=== PATIENT | male | born 1955 | race Caucasian/White ===

== ENCOUNTER 2018-12-12 09:04 | Emergency (ER) | payer OTHER ==
[~2018-12-12] VITALS: Ht 175.3 cm; Wt 90.7 kg
[~2018-12-12 09:04] MED LIST: ALBU90OI61 INH; AZIT250 PO; FAMO20 PO; METPRE4DP PO
[2018-12-12 09:28] LABS: BASOPHILS ABSOLUTE AUTO 0.08 K/mm3 (0.00-0.23); BASOPHILS PERCENT AUTO 1 % (0-2); EOSINOPHILS ABSOLUTE AUTO 0.17 K/mm3 (0.00-0.68); EOSINOPHILS PERCENT AUTO 2 % (0-6); Hematocrit 48.3 % (37.0-53.0); Hemoglobin 16.4 g/dL (13.5-17.5); IMMATURE GRAN ABSOLUTE AUTO 0.06 K/mm3 (0.00-0.10); IMMATURE GRAN PERCENT AUTO 1 % (0-1); LYMPHOCYTES ABSOLUTE AUTO 2.72 K/mm3 (0.84-5.20); LYMPHOCYTES PERCENT AUTO 37 % (21-46); MONOCYTES ABSOLUTE AUTO 0.94 K/mm3 (0.16-1.47); MONOCYTES PERCENT AUTO 13 % (4-13); Mean Corpuscular HGB 34.8 pg (26.0-34.0); Mean Corpuscular Volume 103 fL (80-100); Mean Platelet Volume 9.1 fL (9.1-12.4); NEUTROPHILS ABSOLUTE AUTO 3.31 K/mm3 (1.96-9.15); NEUTROPHILS PERCENT AUTO 46 % (41-73); Platelet Count 205 K/mm3 (150-400); RDW Coefficient Variation 12.4 % (11.7-14.2); RDW Standard Deviation 47.3 fL (35.1-46.3); Red Blood Cell Count 4.71 M/mm3 (4.30-5.90); White Blood Cell Count 7.28 K/mm3 (4.00-11.30)
[2018-12-12 09:52] LABS: Alanine Aminotransfer (ALT/SGP 164 U/L (12-78); Albumin, Blood 3.8 g/dL (3.4-5.0); Alk Phos 132 U/L (50-136); Anion Gap 18 mmol/L (6-16); Aspartate Aminotrans (AST/SGOT 298 U/L (12-37); Bilirubin, Total 0.7 mg/dL (0.1-1.0); Blood Urea Nitrogen 15 mg/dL (8-24); Bun/Creatinine Ratio 15.4 (12.0-20.0); CO2, Blood 23 mmol/L (21-32); Calcium, Blood 9.5 mg/dL (8.5-10.1); Chloride, Blood 100 mmol/L (98-108); Creatinine, Blood 0.98 mg/dL (0.60-1.20); Globulin, Blood 3.9 g/dL (2.2-4.0); Glomerular Filtration Rate >60 (60-); Glucose, Blood 173 mg/dL (70-99); Potassium, Blood 3.3 mmol/L (3.5-5.5); Sodium, Blood 141 mmol/L (136-145); Total Protein, Blood 7.7 g/dL (6.4-8.2)
== END 2018-12-12 11:27 | disposition home or self-care (01) ==
LOC: ER 09:04
PROVIDERS: Emergency Medicine
DX: F10.20 Alcohol dependence, uncomplicated (principal); E87.6 Hypokalemia; F17.210 Nicotine dependence, cigarettes, uncomplicated; Z79.899 Other long term (current) drug therapy
CPT/HCPCS: 36415; 80053; 82947; 83735; 85025; 93005; 93010; 96365; 96366; 96375; 96376; 99285-25; J2060; J3411; J3475; J7042

== ENCOUNTER 2018-12-22 13:22 | Inpatient (IN) | payer OTHER ==
[~2018-12-22] VITALS: Ht 188 cm; Wt 82.5 kg
[2018-12-22 13:47] LABS: Source, Urine Catheter
[2018-12-22 13:52] LABS: BASOPHILS ABSOLUTE AUTO 0.13 K/mm3 (0.00-0.23); BASOPHILS PERCENT AUTO 1 % (0-2); EOSINOPHILS ABSOLUTE AUTO 0.27 K/mm3 (0.00-0.68); EOSINOPHILS PERCENT AUTO 2 % (0-6); Hematocrit 47.4 % (37.0-53.0); Hemoglobin 16.1 g/dL (13.5-17.5); IMMATURE GRAN ABSOLUTE AUTO 0.06 K/mm3 (0.00-0.10); IMMATURE GRAN PERCENT AUTO 0 % (0-1); LYMPHOCYTES ABSOLUTE AUTO 2.67 K/mm3 (0.84-5.20); LYMPHOCYTES PERCENT AUTO 20 % (21-46); MONOCYTES ABSOLUTE AUTO 1.15 K/mm3 (0.16-1.47); MONOCYTES PERCENT AUTO 9 % (4-13); Mean Corpuscular HGB 35.3 pg (26.0-34.0); Mean Corpuscular Volume 104 fL (80-100); Mean Platelet Volume 9.3 fL (9.1-12.4); NEUTROPHILS PERCENT AUTO 68 % (41-73); Platelet Count 339 K/mm3 (150-400); RDW Coefficient Variation 12.8 % (11.7-14.2); RDW Standard Deviation 48.8 fL (35.1-46.3); Red Blood Cell Count 4.56 M/mm3 (4.30-5.90); White Blood Cell Count 13.38 K/mm3 (4.00-11.30)
[2018-12-22 13:55] LABS: Appearance, Urine Clear (Clear); Bilirubin, Urine Neg (Neg); Blood, Urine Neg (Neg); Color, Urine Yellow (P-Yellow); Glucose Qualitative, Urine Neg (Neg); Ketones, Urine 2+ (Neg); Leukocyte Esterase, Urine Neg (Neg); Nitrite, Urine Neg (Neg); Protein, Urine Neg (Neg); Specific Gravity, Urine 1.015 (1.003-1.022); Urobilinogen, Urine NORM (Normal)
[2018-12-22 14:13] LABS: Alanine Aminotransfer (ALT/SGP 95 U/L (12-78); Albumin, Blood 3.9 g/dL (3.4-5.0); Albumin/Globulin Ratio 1.1 (0.8-1.8); Alk Phos 135 U/L (50-136); Anion Gap 14 mmol/L (6-16); Aspartate Aminotrans (AST/SGOT 122 U/L (12-37); Bilirubin, Total 1.2 mg/dL (0.1-1.0); Blood Urea Nitrogen 19 mg/dL (8-24); Bun/Creatinine Ratio 16.4 (12.0-20.0); CO2, Blood 25 mmol/L (21-32); Calcium, Blood 9.5 mg/dL (8.5-10.1); Chloride, Blood 105 mmol/L (98-108); Creatinine, Blood 1.16 mg/dL (0.60-1.20); Ethanol (Alcohol), Blood, Med <3 mg/dL; Globulin, Blood 3.6 g/dL (2.2-4.0); Glomerular Filtration Rate >60 (60-); Glucose, Blood 167 mg/dL (70-99); Magnesium, Blood 1.9 mg/dL (1.6-2.4); Potassium, Blood 3.1 mmol/L (3.5-5.5); Sodium, Blood 144 mmol/L (136-145); Total Protein, Blood 7.5 g/dL (6.4-8.2)
[2018-12-22 14:15] LABS: U Amphetamine Screen DETECTED
[2018-12-22 14:16] LABS: U Barbituate Screen Not Detected; U Benzodiazapine Screen Not Detected; U Buprenorphine Screen Not Detected; U Cannabinoids Screen Not Detected; U Cocaine Screen Not Detected; U Methadone Screen Not Detected; U Methamphetamine Screen DETECTED; U Opiates Screen DETECTED; U Oxycodone Screen Not Detected; U Phencyclidine Screen Not Detected; U Propoxyphene Screen Not Detected
[2018-12-22 14:18] LABS: Prothrombin Time Results 10.6 Sec (9.7-11.5)
[2018-12-22 14:36] LABS: CPK Creatine Kinase 210 U/L (39-308)
[2018-12-23 07:37] LABS: BASOPHILS ABSOLUTE AUTO 0.07 K/mm3 (0.00-0.23); BASOPHILS PERCENT AUTO 1 % (0-2); EOSINOPHILS PERCENT AUTO 1 % (0-6); Hematocrit 41.2 % (37.0-53.0); Hemoglobin 13.9 g/dL (13.5-17.5); IMMATURE GRAN ABSOLUTE AUTO 0.05 K/mm3 (0.00-0.10); IMMATURE GRAN PERCENT AUTO 1 % (0-1); LYMPHOCYTES ABSOLUTE AUTO 0.69 K/mm3 (0.84-5.20); LYMPHOCYTES PERCENT AUTO 7 % (21-46); MONOCYTES ABSOLUTE AUTO 0.66 K/mm3 (0.16-1.47); MONOCYTES PERCENT AUTO 7 % (4-13); Mean Corpuscular HGB 34.8 pg (26.0-34.0); Mean Corpuscular HGB Conc 33.7 g/dL (31.5-36.5); Mean Corpuscular Volume 103 fL (80-100); Mean Platelet Volume 9.5 fL (9.1-12.4); NEUTROPHILS ABSOLUTE AUTO 8.65 K/mm3 (1.96-9.15); NEUTROPHILS PERCENT AUTO 85 % (41-73); Platelet Count 228 K/mm3 (150-400); RDW Coefficient Variation 12.9 % (11.7-14.2); RDW Standard Deviation 48.9 fL (35.1-46.3); Red Blood Cell Count 3.99 M/mm3 (4.30-5.90); White Blood Cell Count 10.22 K/mm3 (4.00-11.30)
[2018-12-23 08:18] LABS: Alanine Aminotransfer (ALT/SGP 72 U/L (12-78); Albumin, Blood 2.9 g/dL (3.4-5.0); Albumin/Globulin Ratio 0.8 (0.8-1.8); Alk Phos 112 U/L (50-136); Anion Gap 12 mmol/L (6-16); Aspartate Aminotrans (AST/SGOT 73 U/L (12-37); Bilirubin, Total 0.5 mg/dL (0.1-1.0); Blood Urea Nitrogen 21 mg/dL (8-24); Bun/Creatinine Ratio 25.2 (12.0-20.0); CO2, Blood 22 mmol/L (21-32); Calcium, Blood 8.6 mg/dL (8.5-10.1); Chloride, Blood 115 mmol/L (98-108); Creatinine, Blood 0.83 mg/dL (0.60-1.20); Globulin, Blood 3.5 g/dL (2.2-4.0); Glomerular Filtration Rate >60 (60-); Glucose, Blood 125 mg/dL (70-99); Sodium, Blood 149 mmol/L (136-145); Total Protein, Blood 6.4 g/dL (6.4-8.2)
--- NOTE | 2018-12-23 15:25 | NUR ---
PT ARRIVED TO PCU 8 VIA GURNEY. FULL STAFF TRANSFER INTO BED. PT GRUNTS WITH TURNING, DOES NOT OPEN EYES. SLIGHT TREMOR NOTED IN ARMS, DOES ATTEMPT TO PULL AT NEVILLE.PT VERY ODOROUS, BATH GIVEN. SKIN INTACT. VSS ALTHOUGH SOMEWHAT HYPERTENSIVE. TRACE EDEMA NOTED. CONT TO MONITOR AND ASSESS CIWA NEEDED
--- NOTE | 2018-12-23 18:15 | NUR ---
PT RESTING IN BED. IVF INFUSING. DAUGHTER THOMPSON IN TO CHECK PT STATUS. ONLY FEW TWITCHES, SMALL MOVEMENTS NOTED. PT STILL ONLY OPENING EYES FOR BRIEF MOMENT WITH VERBAL AND TOUCH STIMULI, DOES NOT RESPOND OTHERWISE. CIWA RESPONDING WELL WITH 2MG ATIVAN. CONT TO MONITOR AND REPORT OFF TO PM RN
[2018-12-24 04:21] LABS: Anion Gap 10 mmol/L (6-16); Blood Urea Nitrogen 15 mg/dL (8-24); Bun/Creatinine Ratio 21.2 (12.0-20.0); CO2, Blood 26 mmol/L (21-32); Calcium, Blood 8.9 mg/dL (8.5-10.1); Chloride, Blood 110 mmol/L (98-108); Creatinine, Blood 0.71 mg/dL (0.60-1.20); Glomerular Filtration Rate >60 (60-); Glucose, Blood 111 mg/dL (70-99); Potassium, Blood 3.3 mmol/L (3.5-5.5); Sodium, Blood 146 mmol/L (136-145)
--- NOTE | 2018-12-24 06:00 | NUR ---
SHIFT SUMMARY . RECEIVED PT AT 1900/ OBTUNDED AND NON VERBAL AND ONLY RESPONDS W/ MOAN TO IRRITABLE STINULI. ATIVAN USED NEEDED THRU NOC. CIWA 9-11 ALL NOC. RESTLESS AND TIGHTENS ARMS AND SOME TREMORS COME AND GO AND WORSE WHEN TAKING BP IT SEEMS AN IRRATABLE STIMULUS. NO RESTRAINTS NEEDED TONIGHT. ATIVAN VERY EFFECTIVE AND MINIMAL DOSING. OPENS EYE EARLIER THIS AM AND MUMBLE NAME AND ACCURATE DATE. TREMORS ARE VERY MILD. OCC MOIST COUGH NOT IMPAIRING RESP EFFORT. LEFT O2 ON ALL NOC AT 2-3L . NOTED A SLIGHT SLEEP APNEA WITH SOME RHYTHMIC BREATHING. DOES NOT APPEAR IN ANY PAIN. IVF AT 200 HR THRU ENTIRE NOC. BP UP AND STIFFENS ARM. WITH SOME MOVEMENT FOR BP CHECK. TEMP 100 AND REMOVED EXTRA COVERS. IMPROVING FOR COOL DOWN.S/ ST 104 HIGHEST HR. NO SKIN ISSUES . TEA COLORED URINE VIA NEVILLE. DID NOT PULL ON NEVILLE ALL NOC
--- NOTE | 2018-12-24 10:59 | NUR ---
PCU DAYSHIFT ASSUMED CARE OF PT APPROX. 0700. PT RESTING AT THIS TIME. NO S/SX OF AGGITATION OR DISCOMFORT. CIWA SCORE COMPLETED. BLOOD PRESSURE ELEVATED, PRN MEDICATION FOR HYPERTENSION GIVEN PER EMAR FOR THIS. HEART RHYTHM SINUS TACHYCARDIA. ALL OTHER VITAL SIGNS STABLE. PT OPENED EYES TO VERBAL STIMULI BUT UNABLE TO GIVE VERBAL FEEDBACK. MORNING PROGRESSED PT ABLE TO MUMBLE SOME WORDS WHEN ASKED QUESTIONS AND ABLE TO OPEN EYES. BUT REMAINS SLEEPY AND LETHARGIC. BED IN LOW POSTION, BED ALARM ON, CALL LIGHT IN REACH AND PT DENIES ANY NEEDS AT THIS TIME. WILL CONTINUE TO MONITOR.
--- NOTE | 2018-12-24 16:04 | NUR ---
I was present with this family when Mrs. Honeycutt last week. It does hot surprise me that Jacob ended up hospitalized. I met with his dtr at bedside. She is very concerned about his drinking and tells me this has escalated since 's passing. She doubts he will ever maintain sobriety. Jacob slept restlessly throughout visit. I provided theraputic listening and prayer. Encouraged self-care. Affirmed excellent care and attention. I will remain available to this pt and family.
--- NOTE | 2018-12-24 17:42 | NUR ---
Asked to return to pts room by RN because he has awakend. His speech is garbled and he appears confused. He was trying to get up, but is far too weak to do so. Provided calm assurance of care and a presence of love. I will remain available to Sean in coming days to provide bereavement elementary school counselor and comfort.
--- NOTE | 2018-12-24 19:52 | NUR ---
SHIFT SUMMARY THROUGHOUT SHIFT PT MENTATION VARIED. AT TIMES PT WAS LETHARGIC AND DIFFICULT TO ARROUSE BUT REMAINED ARROUSABLE. OTHER TIMES PT OPEN EYES TO VERBAL STIMULI AND WAS ABLE TO TRACT THE PERSON IN ROOM. PT WAS ABLE TO ANSWER QUESTIONS AT TIMES. THIS EVENING PT WAS ABLE TO HOLD A SHORT CONVERSATION, ALTHOUGH MANY WORDS WERE MUMBLED AND DIFFICULT TO UNDERSTAND. PT HAD SOME INCREASED AGGITATION AT TIMES. ATIVAN WAS GIVEN PER EMAR THROUGHOUT SHIFT. DAUGHTER AT [facility] INTERMITENTLY TODAY. DAUGHTER REPORTS ABLE TO HAVE A SMALL CONVERSATION WITH PT THIS EVENING WELL. SHE REPORTS HE EXPRESSED BEING SAD ABOUT RECENT LOSS OF . PALLIATIVE CARE RN NOTIFIED AND IN TO SEE PT TODAY. BLOOD PRESURE ELEVATED THROUGHTOUT SHIFT PRN HYPERTENSION MEDICATION GIVEN PER EMAR FOR THIS. PMD NOTIFIED OF THIS WELL AND ORDERS TO CONTINUTE WITH PRN HYPERTENSION MEDICATION ORDERED. PMD REPORTS HE EXPECTS BLOOD PRESSURE TO BE ELEVATED WHILE DETOXING. DAUGHTER NOTIFIED STAFF THAT PT HAS PREVIOUSLY BEEN DIAGNOSISED WITH HTN WELL. NEVILLE REMAIN IN PLACE, PATENT AND DRAINING. BED IN LOW POSTION, CALL LIGHT IN REACH AND PT DENIES ANY NEEDS AT THIS TIME. WILL CONTINUE TO MONITOR UNTIL HANDOFF TO NIGHTSHIFT RN.
--- NOTE | 2018-12-24 23:11 | NUR ---
PM NOTE. ASSUMED CARE OF PT APROX 1900, PT IS ASLEEP AND WAKE SLIGHTLY TO VERBAL STIMULI AND TOUCH/SHAKING BUT GOES BACK TO SLEEP VERY QUICKLY. TELE INTACT, ST AT 118 PER ROLLER CLEANER, PT BP IS 192/119 (MEDICATED PER EMAR), TRACE EDEMA NOTED TO THE PT'S BLE. L/S CLEAR T/O AND DIM IN THE BASES, PT IS >90% ON RA, RR AT 28 ARE EVEN AN UNLABORED. BT PRESENT AND HYPERACTIVE, ABD IS SOFT AND NONTENDER TO PALP. BED ALARM ON, CALL LIGHT IN REACH, BED IS LOCKED WILL CONTINUE TO MONITOR.
--- NOTE | 2018-12-25 00:50 | NUR ---
PT UPDATE... THIS RN ENTERED PT'S ROOM AND SAW PT WAS PULLING ON NEVILLE, PT WAS VERY AGITATED, TRYING TO CLIMB OUT OF BED AND PULL EVERYTHING OFF, TELE, GOWN, AND IV WELL THE NEVILLE. PT WAS MEDICATED PER EMAR FOR A CIWA OF 20. AFTER PT WAS MEDICATED, PT WAS STILL ATTEMPTING TO PULL OUT NEVILLE AND CLIMB OUT OF BED. PT WAS MEDICATED AGAIN PER EMAR/CIWA PROTOCOL/CLINICAL JUDGMENT. WILL CLOSELY MONITOR.
--- NOTE | 2018-12-25 02:34 | NUR ---
PT UPDATE... PT IS AGITATED, ATTEMPTING TO PULL OUT HIS NEVILLE, IV AND TELE. PT IS ALSO ATTEMPTING TO CLIMB OUT OF BED, DIAPHORETIC AND HAS TREMORS, PT'S LAST CIWA WAS 20. PT HAS HAD THE MAX 24 MG OF ATIVAN PER CIWA PROTOCOL. PT HAS PULLED ON HIS NEVILLE MULTIPLE TIMES, URINE IN THE THE NEVILLE TUBE AND BAG IS [place] RED. PT'S AGITATION IS INCREASING. PROVIDER CALLED, ORDERS OBTAINED TO TRANSFER TO ICU.
--- NOTE | 2018-12-25 03:30 | NUR ---
RECEIVED REPORT. PT ARRIVAED TO ROOM AT APPROX 0325. ASSUMED CARE OF PT AT THAT TIME. WILL CONTINUE TO MONITOR
[2018-12-25 04:23] LABS: Magnesium, Blood 1.5 mg/dL (1.6-2.4)
[2018-12-25 04:24] LABS: Anion Gap 10 mmol/L (6-16); Blood Urea Nitrogen 13 mg/dL (8-24); Bun/Creatinine Ratio 17.4 (12.0-20.0); CO2, Blood 26 mmol/L (21-32); Calcium, Blood 8.7 mg/dL (8.5-10.1); Chloride, Blood 106 mmol/L (98-108); Creatinine, Blood 0.75 mg/dL (0.60-1.20); Glomerular Filtration Rate >60 (60-); Glucose, Blood 127 mg/dL (70-99); Potassium, Blood 3.5 mmol/L (3.5-5.5); Sodium, Blood 142 mmol/L (136-145)
--- NOTE | 2018-12-25 07:07 | NUR ---
SHIFT NEREIDARY NOTE PT HAS REMAINED ASLEEP THROUGH MOST OF THE NIGHT AFTER ARRIVAL FROM PCU. PT WILL AWAKEN BREIFLY. PT HAS STATED THAT HE NEEDS TO URINATE AND HAS HAD TO BE REDIRECTED FROM PULLING ON NEVILLE CATH. PER REPORT PT PULLED ON NEVILLE WHILE IN PCU. PT NEVILLE IS NOW DRAINING KIM RED BLOOD AND URINE. CLOTS OBSERVED IN NEVILLE TUBING. NEVILLE FLUSHED WITH SOME RESISTANCE. APPROX 250ML OF BLOODY URINE DRAINED AFTER ARRIVAL TO THE ICU. PT HAS BEEN HYPERTENSIVE SINCE ARRIVAL FROM PCU. PT HAS BEEN PROVIDED LABETOLOL AND HYDRALAZINE PER EMAR. MEDICATIONS APPEARED TO BE EFFECTIVE IN LOWERING BP TO THE 150-160'S, BUT ONLY BREIFLY. PT IS ON ROOM AIR WITH SPO2 MAINTAINING IN THE 90'S. PT HR IS MAINTAINING IN THE 90'S, PT APPEARS TO BE IN NSR. PT IS RECEIVING PRECEDEX AT 0.6MCG/KG/HR. PT CONTINUES TO RECEIVE NS AT 100ML/HR. WILL RE[facility].
--- NOTE | 2018-12-25 11:14 | NUR ---
PT HAS BEEN HAVING LOTS OF CLOTS BLOCKING HIS CATHETER REQUIRING FREQUENT IRRIGATION TO MAINTAIN FLOW. DR. SPEARS NOTIFIED AND RECEIVED OK TO REPLACE CATHETER WITH LARGER SIZE. NEVILLE REPLACED WITH 20G CATHETER BUT WHEN CATHETER REMOVED KIM RED BLOOD/URINE SHOT OF PT'S URETHRA AND CONTINUED TO DRAIN. WHEN NEW CATHETER PUT IN THICK RED OUTPUT CAME OUT AND PT STARTED HAVING CLOTS AGAIN IMPEDING FLOW. DR. SPEARS NOTIFIED AND RECEIVED ORDER TO CHECK H/H THIS AFTERNOON AND TO START CONTINUOUS BLADDER IRRIGATION.
--- NOTE | 2018-12-25 13:03 | NUR ---
ATTEMPTED TO PLACE [address] 22G NEVILLE FOR BLADDER IRRIGATION, BUT UNABLE TO ADVANCE FAR ENOUGH TO INFLATE BALLOON. IN ADDITION, SOON THE DRAINAGE FROM IT HIT THE CATHETER TUBING IT WAS CLOTTED AND CLOGGING THE TUBE. SWITCHED TO A 20G AND WAS ABLE TO ADVANCE, BUT HAD THE SAME TROUBLE WITH TUBING CLOGGING DESPITE MULTIPLE IRRIGATION ATTEMPTS. CATHETERS REMOVED AND URINE/BLOOD SLOWLY TRICKLES OUT SO CATHETER LEFT OUT FOR NOW. PT STILL AGITATED SAYING HE FEELS LIKE HE HAS TO PEE. DR. SPEARS NOTIFIED OF ALL THIS AND TRIED TO TRANSFER PT BUT [facility] IS THE EARLIEST THERE IS ANY AVAILABILITY. AWAITING CALL BACK FROM UROLOGY TO SEE WHAT ELSE CAN BE DONE.
[2018-12-25 13:29] LABS: Hematocrit 39.8 % (37.0-53.0); Hemoglobin 13.6 g/dL (13.5-17.5)
--- NOTE | 2018-12-25 17:37 | NUR ---
SHIFT SUMMARY: PT HAS ENDED UP WITH A 14FR COUDE CATHETER DUE TO INABILITY TO GET ANY OTHER CATHETER IN. UROLOGY HAD RECOMMENDED A 24FR WITH IRRIGATION BUT WE WERE UNABLE TO FULLY PASS IT THROUGH THE URETHRA. WITH THOSE CATHETERS WE WERE ABLE TO IRRIGATE AND REMOVE SEVERAL LARGE CLOTS IN ATTEMPTS TO PASS THE CATHETER. BECAUSE OF THE DIFFICULTY INSERTING THE CATHETER, THE DECISION WAS MADE TO LEAVE THE COUDE IN AND DO FREQUENT MANUAL IRRIGATION. THIS HAS KEPT THE CATHETER PATENT SO FAR. SEVERAL SMALL CLOTS CONTINUE TO PASS. PT APPEARS MUCH MORE COMFORTABLE. HR AND BP ARE BACK DOWN CLOSER TO NORMAL LIMITS AND PT IS RESTING QUIETLY. PRECEDEX HAS BEEN ABLE TO BE TITRATED DOWN TO 0.4 MCG/KG/HR SINCE NEW CATHETER WAS PLACED. PT CONTINUES TO BE ORIENTED ONLY TO HIMSELF. HE IS IN SR, SBP IN THE 150S NOW THAT HE IS COMFORTABLE. LUNGS ARE CLEAR. PT HAS A MOIST COUGH BUT ISN'T GETTING ANY SPUTUM UP THAT HAS BEEN SEEN. PT HAS HAD SEVERAL SOFT BMS TODAY, ALL INCONTINENT. URINE REMAINS RED. PT'S DAUGHTER WAS IN TODAY AND FULLY UPDATED ON PT'S STATUS AND EVENTS SURROUNDING HIS BLADDER. ALL QUESTIONS HAVE BEEN ANSWERED.
--- NOTE | 2018-12-25 21:00 | NUR ---
THOMPSON (PT'S DAUGHTER) PT'S DAUGHTER, THOMPSON CALLED ICU AT THIS TIME. THOMPSON STATED, "I AM CONCERNED ABOUT THE VISITORS COMING INTO ROOM ICU 3, BECAUSE I AM AFRAID THEY ARE GOING TO BRING IN ALCOHOL OR NARCOTICS AND GIVE IT TO MY DAD". THOMPSON WANTS TO RESTRICT VISITORS UNLESS THOMPSON IS PRESENT. THOMPSON ALSO STATED THAT THE PT HAS A HX OF ALCOHOL AND NARCOTIC ABUSE. INFORMED PRIMARY RN, ULISES RN ABOUT CONVERSATION WITH THOMPSON. GARTH MONTGOMERY PLANNING TO CALL THOMPSON BACK THIS PM.
--- NOTE | 2018-12-25 22:51 | NUR ---
ASSUMING CARE RECEIVED PT REPORT FROM OCTAVIO Coley RN. PT IS SOMNOLENT AT THE TIME CARE WAS ASSUMED. PT IS AROUSABLE BUT WILL QUICKLY FALL BACK ASLEEP WITHOUT STIMULATION AND WILL ONLY RESPOND IN MOANS OR GRUNTS. PT CONTINUES TO RECEIVE PRECEDEX, CURRENTLY RUNING AT 0.4MCG/KG/HR. PT HAS CIWA PROTOCOL IN PLACE. SOME BEADS OF SWEAT NOTED ON FOREHEAD. PT CIWA IS APPROX A 9 AT THIS TIME WITH POINTS DUE TO DISORIENTATION AND SWEATS, OTHER POINTS WERE MINIMAL DUE TO PTS SOMNOLENCE AT THIS TIME. PT HAS A [address] AT THIS TIME. PT URINE REMAINS BRIGHT RED WITH CLOTS. PT HAS REQUIRED FREQUENT FLUSHING OF NEVILLE TO PREVENT NEVILLE FROM CLOTTING OFF. NEVILLE APPEARS TO BE PATENT AND DRAINING AT THIS TIME. BLADDER SCAN PERFORMED WITH A RESULT OF 0ML. PT HTN APPEARS IMPROVED FROM PREVIOUS SHIFT OF CARE. PT BP IS IN THE 130-140'S RANGE AT THIS TIME. PT HR IS IN THE 90'S AT THIS ITME AND APPEARS SINUS. PT IS RECEIVING NS AT 100ML/HR ASSUMING CARE OF PT AT THE TIME OF SHIFT REPORT. WILL CONTINUE TO MONITOR PT.
--- NOTE | 2018-12-26 00:52 | NUR ---
PT DAUGHTER SPOKE WITH PT DAUGHTER. PT DAUGHTER STATED THAT SHE WAS PREVIOUSLY CONCERNED ABOUT VISITORS WHO SHE DID NOT KNOW COMING IN TO VISIT HER FATHER. DAUGHTER STATED THAT SHE HAD SPOKEN WITH HER UNCLE ABOUT THE VISITORS AND THAT SHE WAS OK WITH THE TWO VISITORS, SHARYN AND SAMIRA, CONTINUING TO VISIT HER FATHER. SHE DID STATE THAT SHE DID NOT WANT THEM TO BE BE GIVEN INFORMATION AND WANTS TO BE INTERMIDIARY FOR INFORMATION TO OTHERS CONCERNING HER FATHERS CARE.
[2018-12-26 03:32] LABS: Anion Gap 9 mmol/L (6-16); Blood Urea Nitrogen 14 mg/dL (8-24); Bun/Creatinine Ratio 19.4 (12.0-20.0); CO2, Blood 24 mmol/L (21-32); Calcium, Blood 8.6 mg/dL (8.5-10.1); Chloride, Blood 108 mmol/L (98-108); Creatinine, Blood 0.72 mg/dL (0.60-1.20); Glomerular Filtration Rate >60 (60-); Glucose, Blood 121 mg/dL (70-99); Magnesium, Blood 1.9 mg/dL (1.6-2.4); Potassium, Blood 3.9 mmol/L (3.5-5.5); Sodium, Blood 141 mmol/L (136-145)
--- NOTE | 2018-12-26 06:11 | NUR ---
SHIFT SUMMARY NOTE PT HAS REMAINED SOMNOLENT THROUGH THE NIGHT. PT HAS SPOKEN A FEW WORDS THROUGH THE NIGHT. PT REMAINS CONFUSED. PT HAS NOT BEEN OBSERVED TO PULL ON ANY LINES/TUBES OR NEVILLE. PT CONTINUES ON PRECEDEX GTT AT A RATE OF 0.4MCG/KG/HR. AND NS AT 100ML/HR. PT NEVILLE REMAINS PATENT AT THIS TIME. PT CONTINUES TO HAVE RED/BLOODY URINE WITH CLOTS. PT HAS HAD TO HAVE NEVILLE FLUSHED FREQUENTLY TO MAINTAIN PATENCY. PT HAS APPROX 940ML OF URINE OUTPUT OVERNIGHT. PT BP HAS REMAINED STABLE THROUGHOUT THE NIGHT. PT HR HAS MAINTAINED IN THE 80-90'S. PT HAS REMIANED ON ROOM AIR THROUGHOUT THE NIGHT WITH SPO2 IN THE MID TO LOW 90'S. PT WAS PROVIDED ATIVAN X1 OVERNIGHT. PT CIWA HAS MAINTAINED IN THE 8-9 RANGE, LOW SCORES ARE MOSTLY DUE TO SOMNOLENCE. [facility].
--- NOTE | 2018-12-26 07:30 | NUR ---
START OF SHIFT NOTE: RECEIVED REPORT FROM GARTH MONTGOMERY, ASSUMED CARE, PATIENT IS RESTING AT THIS TIME, WEARS BRIEF ONLY, NEVILLE CATHETER IN PLACE, BLOOD NOTED AROUND MEATUS, URINE HAS A PINKISH TINGE, SMALL CLOTS NOTED, PATIENT CONTINUES TO BE CONFUSED, THINKS HE IS IN [place], PRECEDEX INFUSING AT 0.4 AT THIS TIME, ALSO NS AT 100 INFUSING, PATIENT IS NOT RESTRAINT, COOPERATIVE AT THIS TIME, DAUGHTER CALLED AND UPDATED, SOME FRIENDS AT BEDSIDE, CALL LIGHT IN REACH, WILL CONTINUE TO MONITOR.
--- NOTE | 2018-12-26 10:27 | NUR ---
PATIENT WAS IRRIGATED WITH 60 CC STERILE WATER AND CLOTS AND PINK TINGED URINE ARE OBSERVED TO DRAIN INTO BAG, PATIENT TOLERATED WELL, CONTINUES TO BE ON PRECEDEX DRIP, RESTING COMFORTABLY, FRIEND AT BEDSIDE, CALL LIGHT IN REACH, WILL CONTINUE TO MONITOR.
--- NOTE | 2018-12-26 16:10 | NUR ---
PATIENT IS RESTING COMFORTABLY, COOPERATIVE FOR THE MOST PART OF THE DAY, STATED "I NEED A CIGARETTE, I AM GOING TO JUST GO OUTSIDE AND HAVE A CIGARETTE", PATIENT WAS REORIENTED AND NOTIFIED THAT HE WAS NOT ABLE TO GO OUT AT THIS TIME, CALL LIGHT IN REACH, WILL CONTINUE TO MONITOR.
--- NOTE | 2018-12-26 17:55 | NUR ---
SHIFT SUMMARY NOTE: PATIENT ON PRECEDEX DRIP AT 0.4 MCG AND NS @ 100 CC/HR, BLADDER IRRIGATIONS EVERY 4 HOURS WITH 60 CC OF STERILE WATER, PATIENT TOLERATING WELL, URINE CONTINUES TO BE BLOODY AND HAS SMALL CLOTS IN IT, NO RESTRAINTS AT THIS POINT, PATIENT IS COOPERATIVE, TAKES FREQUENT NAPS, FRIENDS AND DAUGHTER AT BEDSIDE, PATIENT IS A HEAVY SMOKER AND FREQUENTLY VERBALIZES WISH TO GO OUTSIDE AND SMOKE, REORIENTED, OVERALL PATIENT IS ALERT AND ORIENTED TO SELF AND PLACE, RECOGNIZES DAUGHTER AND FRIENDS, THERE ARE PERIODS OF CONFUSION, PATIENT THREATENED TO LEAVE, STATED "MISS, I AM CHECKING OUT, THIS IS NOT THE PLACE FOR ME, I AM LEAVING", PATIENT WAS REORIENTED BY FRIEND AT BEDSIDE AND THIS RN, AGREE TO STAY, PATIENT REFUSED BREAKFAST AND LUNCH, BUT ATE DINNER, CALL LIGHT IN REACH, WILL CONTINUE TO MONITOR AND GIVE REPORT TO WATER SOFTENER SERVICE SUPERVISOR.
--- NOTE | 2018-12-26 20:00 | NUR ---
ASSUMED CARE OF PT AT 1900. REPORT RECEIVED. PT PRESENTS IN BED. ALERT AND ORIENTED. IS ABLE TO STATE HE IS IN THE HOSPITAL AND KNOWS YEAR. PT ONLY COMPLAINT AT THIS TIME IS COUGH AND REQUESTING SOMETHING TO HELP. WILL OBTAIN ORDER FROM HOSPITALIST. NEVILLE CATHETER PATENT - TEA COLORED WITH OCCASSIONAL SMALL CLOTS. PT DENIES FEELINGS OF BEING DISTENDED OR PAIN. PRECEDEX DRIP AT 0.4 MCG'S. DECREASED DRIP TO 0.4 MCG'S. WILL CLOSELY WATCH DEGREE OF WITHDRAWALS AND ABILITY TO TITRATE PRECEDEX DRIP TO OFF. PT APPROPRIATELY CALLS FOR ASSIST WITH BM. WILL REVIEW CHART AND PLAN OF CARE FOR THIS PT.
--- NOTE | 2018-12-26 22:57 | NUR ---
ORDER OBTAINED FOR GUIAFFENESIN/DEXTROMORPHAN. ADMINISTERED DOSE. THIS HAS DECREASED COUGH. WITH AUSCULTATION, NOTED RHONCHI IN BASE LEFT LUNG. IS ABLE TO MAINTAIN SATURATIONS > 90 PERCENT ON ROOM AIR. PT HAS MAINTAINED WELL WITH PRECEDEX BEING DECREASED. WILL CONTINUE TO MONITOR.
--- NOTE | 2018-12-27 01:03 | NUR ---
UNFORTUNATELY PT'S CIWA INCREASED AND PT BEGAN PULLING AT LINES AND TUBES. NEEDED TO INCREASE PRECEDEX DRIP BACK TO 0.4 MCG'S. WILL CONTINUE TO EVALUATE ABILITY TO TITRATE PRECEDEX DRIP BACK DOWN. PT DOES MOVE HIMSELF ABOUT IN BED ON HIS OWN. WILL CONTINUE TO MONITOR PT.
--- NOTE | 2018-12-27 03:01 | NUR ---
PT CONTINUES TO ESCALATE IN CIWA SCORING. FREQUENTLY TRYING TO GET OUT OF BED THOUGH IS UNCOORDINATED IN ATTEMPT. PT RESISTANT TO CARE. NEEDS FREQUENT REORIENTATION. PT HAS HAD INCREASE IN PRECEDEX TO 0.7 MCG/KG/HOUR HAS ALSO NEEDED DOSING OF ATIVAN TO CALM PT. PT FREQUENTLY HAS BEEN PULLING OFF HIS BLOOD PRESSURE CUFF BUT DOES LEAVE HIS CATHETER ALONE. HAVE IRRIGATED CATHETER WITH EQUAL RETURN OF IRRIGANT. FEW CLOTS NOTED. PT ASKS FOR "SOME ALCOHOL" AND NEEDS TO BE REMINDED THAT HE DOES NOT HAVE ALCOHOL HERE IN THE HOSPITAL. BED ALARM ON BED REMAINS ON. WILL CONTINUE TO CLOSELY MONITOR PT.
--- NOTE | 2018-12-27 03:59 | NUR ---
PT CURRENTLY RESTING IN BED. WILL EVALUATE ABILITY TO TURN PRECEDEX DOWN SOME SINCE PT RECEIVED ATIVAN.
[2018-12-27 04:24] LABS: Hematocrit 32.2 % (37.0-53.0); Hemoglobin 11.1 g/dL (13.5-17.5)
--- NOTE | 2018-12-27 04:31 | NUR ---
HAVE BROUGHT PRECEDEX BACK TO 0.5 MCG/KG/HOUR. PT CURRENTLY RESTING IN BED.
[2018-12-27 04:44] LABS: Anion Gap 11 mmol/L (6-16); Blood Urea Nitrogen 16 mg/dL (8-24); Bun/Creatinine Ratio 22.1 (12.0-20.0); CO2, Blood 23 mmol/L (21-32); Calcium, Blood 8.5 mg/dL (8.5-10.1); Chloride, Blood 108 mmol/L (98-108); Creatinine, Blood 0.72 mg/dL (0.60-1.20); Glomerular Filtration Rate >60 (60-); Glucose, Blood 111 mg/dL (70-99); Magnesium, Blood 1.9 mg/dL (1.6-2.4); Potassium, Blood 3.4 mmol/L (3.5-5.5); Sodium, Blood 142 mmol/L (136-145)
--- NOTE | 2018-12-27 07:15 | NUR ---
START OF SHIFT NOTE: PATIENT CONTINUES TO BE ON PRECEDEX 0.5 MCG IV, ALSO RECEIVED A TOTAL OF 6 MG ATIVAN DURING DRILLING ENGINEER FOR EXTREME AGITATION, SLEEPING AT THIS TIME, BUT AROUSABLE, NEVILLE CATHETER IN PLACE, URINE APPEARS TO BE TEA COLORED WITH SMALL CLOTS IN IT, CONTINUES TO RECEIVED IRRIGATION OF 60 CC STERILE WATER EVERY 4 HOURS, TOLERATES WELL, SUPPLEMENTAL POTASSIUM THIS AM FOR A LAB VALUE OF 3.4, NSR, VSS, LS DIMINISHED WITH CRACKLES ON RIGHT IN ALL LOBES, ATTENDS IN PLACE, FRIEND AT BEDSIDE, CALL LIGHT IN REACH, WILL CONTINUE TO MONITOR.
--- NOTE | 2018-12-27 10:36 | NUR ---
DR. SPEARS IN TO SEE PATIENT, NEW ORDERS RECEIVED.
--- NOTE | 2018-12-27 12:00 | NUR ---
VISITORS AT BEDSIDE, DOOR AND CURTAIN CLOSED, WHEN THIS RN WENT INTO ROOM AND OPENED DOOR AND CURTAIN THE SMELL OF SMOKE WAS PRESENT, PATIENT'S DAUGHTER AT BEDSIDE AND EXPLAINED THAT ALL FRIENDS AND HERSELF ARE HEAVY SMOKERS, AND THEY ALL SMELL LIKE SMOKE, DAUGHTER LEFT AND VERBALIZED CONCERNS TO THIS RN THAT HER FATHER MAY TRY TO LEAVE, PATIENT WAS FOUND WITH LEADS OFF HIS CHEST AND GOWN TAKEN OFF, TRYING TO CLIMB OUT OF BED, PRECEDEX WAS INCREASED TO 0.7 AND PATIENT RECEIVED 2 MG ATIVAN, LUNCH ARRIVED BUT PATIENT REFUSED TO EAT, PATIENT HAD ALSO REFUSED BREAKFAST TRAY, BUT DRANK SOME COFFEE, PATIENT APPEARS CALMER AT THIS TIME, CALL LIGHT IN REACH, WILL CONTINUE TO MONITOR.
--- NOTE | 2018-12-27 17:50 | NUR ---
SHIFT SUMMARY NOTE: PATIENT CONTINUES ON PRECEDEX, MORE ALERT, DOES NOT REMEMBER DATE AND TIME, ORIENTED TO FAMILY, FRIENDS, SELF, AND PLACE, NSR, LUNG SOUNDS SHOW SOME CRACKLES IN BASES BUT OTHERWISE CLEAR BUT DIMINISHED, PATIENT HAD LIQUID STOOLS X 3, ABLE TO USE CALL LIGHT FOR BEDPAN, BECAME MORE AGITATED AFTER VISITORS LEFT, DAUGHTER AND PATIENT FOUND IN ROOM WITH CURTAIN AND DOOR CLOSED, INTENSE CIGARETTE SMOKE PRESENT, CIGARETTE BUTT FOUND IN TRASH CAN AFTER DAUGHTER LEFT, PATIENT'S SISTER IN LAW CAME TO SEE PATIENT AND TOOK ALL BELONGINGS, INCLUDING PACKS OF CIGARETTES WITH HER, PRECEDEX UP TO 1.[address] SPEARS, PATIENT ALSO RECEIVED ATIVAN, ATE DINNER WITH GOOD APPETITE, RESTING COMFORTABLY AT THIS TIME, NEVILLE CATHETER NOW DRAINING ADEQUATE AMOUNTS OF TEA COLORED URINE WITH SMALL CLOTS MIXED IN, CALL LIGHT IN REACH, WILL CONTINUE TO MONITOR AND GIVE REPORT TO ONCOMING OVERCASTER.
--- NOTE | 2018-12-27 19:15 | NUR ---
ASSUMED CARE OF PT PT IN DELVIN VEST RESTRAINT LYING IN BED REQUESTING TO GO HOME. PT REDIRECTED AND REMINDED THAT HE NEEDED TO REMAIN IN BED UNTIL HE IS STABLE ENOUGH TO AMBULATE. PRECEDEX RUNNING AT 1.4 MCG/KG/HR. WILL COMPLETE CIWA NEEDED. SEE FULL SHIFT ASSESSMENT.
--- NOTE | 2018-12-27 20:27 | NUR ---
PT ATTEMPTING TO GET OUT OF BED. PT PULLING ON DELVIN VEST TRYING TO RIP THE SEAMS. MEDICATED WITH 4 MG ATIVAN AND REDIRECTED BEHAVIOR. REMINDED PT THAT HE NEEDS TO STAY IN BED FOR HIS SAFETY. CIWA SCORE OF 26
--- NOTE | 2018-12-27 21:24 | NUR ---
PT CONTINUES TO TRY AND CLIMB OUT OF BED. PT RIPPING SEAMS OF DELVIN VEST DESPITE ANOTHER DOSE OF ATIVAN. PT YELLING "HELP" AND "MADIHA OR WON". PT ALSO ATTEMPTING TO PULL NEVILLE CATHETER OUT. WHEN ASKED IF HE KNEW WHERE HE WAS PT STATED "[facility] IN SOME HOSP[facility]", I REORIENTED PT AND TOLD HIM HE WAS AT [facility]. PT STATED "YOU'RE PLAYING SOME GAME" I SHOWED PT MY BADGE AND POINTED TO WHERE IT SAID [facility]. PT CONTINUES TO BE DISORIENTED TO PLACE. PT IS SWEATING AND HYPERTENSIVE. CIWA SCORE OF 26. BED IN LOW LOCKED POSITION, SIDE RAILS UP, CURTAIN AND DOOR OPEN.
--- NOTE | 2018-12-27 22:30 | NUR ---
PT CONTINUES TO PULL AT RESTRAINTS AND ATTEMPT TO GET OUT OF BED. PT REORIENTED.
--- NOTE | 2018-12-27 23:01 | NUR ---
PT HALLUCINATING STATING THAT HE'S "PISSED OFF ABOUT THE LEATHER JACKETS, THE KIDS GLUED THEM ALL TOGETHER". PT REORIENTED.
--- NOTE | 2018-12-28 04:08 | NUR ---
PT WOKE FROM SLEEPING YELLING FOR "UNCLE ED". PT REORIENTED AND IMMEDIATELY PT BECAME VERBALLY AGGRESSIVE. WHEN ASKED IF HE KNEW WHERE HE WAS PT RESPONDED "MOUNA CADY", WHEN ASKED IF HE KNEW THE CURRENT YEAR HE RESPONDED "I DONT GIVE A F*CK". PT THEN STATED THAT THIS NURSE WAS "KIDNAPPING HIM" AND HE REPEATEDLY ASKED FOR A KNIFE TO CUT HIMSELF FREE FROM RESTRAINTS. PT WAS REMINDED THAT THE RESTRAINTS WERE TO KEEP HIM SAFE. PT EXTREMELY AGITATED, ATTEMPTING TO GET OUT OF BED, PULLING ON RESTRAINTS, AND CURSING LOUDLY. PT GIVEN ATIVAN PER CIWA PROTOCOL. CIWA 26.
[2018-12-28 04:32] LABS: Anion Gap 7 mmol/L (6-16); Blood Urea Nitrogen 11 mg/dL (8-24); Bun/Creatinine Ratio 15.6 (12.0-20.0); CO2, Blood 26 mmol/L (21-32); Calcium, Blood 8.4 mg/dL (8.5-10.1); Chloride, Blood 110 mmol/L (98-108); Glomerular Filtration Rate >60 (60-); Glucose, Blood 127 mg/dL (70-99); Potassium, Blood 3.3 mmol/L (3.5-5.5); Sodium, Blood 143 mmol/L (136-145)
--- NOTE | 2018-12-28 04:43 | NUR ---
SHIFT SUMMARY PT HAD CONSISTENT CIWA SCORE OF 26 OVERNIGHT WITH MANY PERIODS OF AGITATION AND CURSING. PT WAS DIAPHORETIC AND HALLUCINATING CALLING FOR FAMILY MEMBERS WHILE AWAKE AND SLEEPING. PT REMAINS IN DELVIN VEST AND BILATERAL SOFT RESTRAINTS FOR HIS SAFETY. PT HAS STILL MANAGED TO OPEN NEVILLE STAT LOCK IN AN ATTEMPT TO REMOVE NEVILLE CATH. PT REORIENTED TO TIME, PLACE AND SITUATION AND REMINDED OF WHY THE RESTRAINTS WERE IN PLACE. PT CONTINUES ON PRECEDEX 1.4 MCG/KG/MIN AND DOSED WITH ATIVAN NEEDED PER CIWA PROTOCOL. VSS OVERNIGHT WITH 1 EPISODE OF HTN TREATED WITH HYDRALAZINE. NEVILLE PATENT AND DRAINING DARK URINE WITH SCANT BLOOD CLOTS NOTED. 2400 ML URINARY OUTPUT THIS SHIFT. WILL REPORT TO DAYSHIFT NURSE.
--- NOTE | 2018-12-28 05:12 | NUR ---
SHIFT SUMMARY NO ACUTE CHANGES OVERNIGHT. PT CONTINUES TO HAVE EXTREME PAIN AND INTENSE MUSCLE CRAMPS WITH REPOSITIONING AND REPORTS VERY LITTLE PAIN RELIEF WITH PRESCRIBED DILAUDID OR FENTANYL. VSS. WILL REPORT TO DAYSHIFT NURSE.
--- NOTE | 2018-12-28 07:20 | NUR ---
START OF SHIFT NOTE: RECEIVED REPORT FROM SHILPA CORONADO RN, ASSUMED CARE, PATIENT CALM AND APPEARS TO BE SLEEPING AT THIS TIME, IN VEST AND BILATERAL WRIST RESTRAINTS AT THIS TIME, WHEN AWOKEN PATIENT IS CONFUSED ABOUT PLACE AND DATE/TIME, KNOWS WHO THE PRESIDENT IS, PATIENT BECOMES VERY AGITATED IMMEDIATELY USING INAPPROPRIATE LANGUAGE, AND TRYING TO PULL OFF RESTRAINTS AND VEST, ALSO TRIED TO PULL ON NEVILLE CATHETER, PRECEDEX CONTINUES AT 1.4 MCG/KG/HR, ALSO RECEIVED ADDITIONAL 2 MF ATIVAN IV PER CIWA ASSESSMENT, DAUGHTER CALLED AND UPDATED ON PATIENT CONDITION, CALL LIGHT IN REACH, PATIENT IN SIGHT, WILL CONTINUE TO MONITOR.
--- NOTE | 2018-12-28 08:00 | NUR ---
DR. SPEARS IN TO SEE PATIENT, NO NEW ORDERS RECIEVED AT THIS TIME.
--- NOTE | 2018-12-28 13:03 | NUR ---
PATIENT WAS RESTING QUIETLY AFTER RECEIVING 4 MG ATIVAN THIS AM, AWOKE AND C/O DRY MOUTH, WHEN ASKED IF HE WANTED SOME ICE WATER HE STATED "I DON'T WANT WATER I WANT A BOTTLE OF WHISKEY, TRIES TO GET OUT OF RESTRAINTS, CALL LIGHT IN REACH, WILL CONTINUE TO MONITOR.
--- NOTE | 2018-12-28 14:47 | NUR ---
PATIENT'S DAUGHTER CALLED, UPDATE PROVIDED VIA TELEPHONE.
--- NOTE | 2018-12-28 16:20 | NUR ---
PATIENT'S SISTER IN LAW AT BEDSIDE, UPDATE PROVIDED.
--- NOTE | 2018-12-28 17:44 | NUR ---
SHIFT SUMMARY NOTE: PATIENT CONTINUOUS ON PRECEDEX AT 1.4 MCG/KG/HR, ALSO RECEIVED A TOTAL OF 10 MG OF ATIVAN FOR EXTREME AGITATION, SEE CIWA SCORES, PATIENT ATE SMALL AMOUNT OF BREAKFAST THIS AM, BUT REFUSED LUNCH AND DINNER, STATED "I WANT A BOTTLE OF WHISKEY", HR IN 60S NSR, LS DIMINISHED BUT CLEAR, NO BM DURING DAY SHIFT, NEVILLE CATHETER IN PLACE, PATIENT WAS OBSERVED TO PULL ON CATHETER, CONTINUES TO BE IN WRIST RESTRAINTS AND DELVIN VEST, PATIENT HAS ALERT AND ORIENTED PERIODS WHEN AWAKE, BUT IS STILL CONFUSED ABOUT PLACE AND DATE/TIME, KNEE HIGH RENEE HOSE IN PLACE, ATTENDS APPLIED, DAUGHTER WAS UPDATED VIA TELEPHONE TWICE TODAY, SISTER IN LAW AT BEDSIDE AND UPDATED ABOUT PATIENT CONDITION, CALL LIGHT IN REACH, WILL CONTINUE TO MONITOR AND GIVE REPORT TO ONCOMING EDGE SETTER.
--- NOTE | 2018-12-28 19:35 | NUR ---
ASSUMED CARE OF PT REPORT RCV'D FROM GARTH MISHRA. NO ACUTE CHANGES FROM ACADEMIC ADVISER. PT SLEEPING SUPINE WITH BILATERAL SOFT WRIST RESTRAINTS AND DELVIN VEST IN PLACE. PRECEDEX RUNNING AT 1.4 MCG/KG/HR. SEE FULL SHIFT ASSESSMENT.
--- NOTE | 2018-12-28 20:12 | NUR ---
PT WOKE AGITATED AND YELLING PROFANITIES. WHEN ASKED IF HE KNEW WHERE HE WAS HE RESPONDED "I DON'T GIVE A SH*T", WHEN ASKED THE YEAR PT RESPONDED "2009". PT PULLING AGGRESSIVELY ON RESTRAINTS, ATTEMPTING TO GET OUT OF BED. PT YELLING THAT HE IS BEING "HELD CAPTIVE" AND THAT HE "WILL MARIE THE ASS OFF THIS HOSPITAL". PT BELIEVES HOSPITAL IS KEEPING HIM FROM ATTENDING HIS 'S MEMORIAL. PT MEDICATED WITH ATIVAN, DURING ADMINISTRATION PT TRIED REPEATEDLY TO GRAB THIS NURSE'S ARM WHILE YELLING PROFANITIES.
--- NOTE | 2018-12-28 22:18 | NUR ---
SPOKE WITH PT'S DAUGHTER THOMPSON AND UPDATED ON PT'S CONDITION. DAUGHTER THMOPSON STATES CONCERN WITH HER STEP-SISTER (ALSO NAMED THOMPSON) VISITING PT TOMORROW. DAUGHTER STATES IT'S OK FOR STEP-SISTER TO VISIT BUT ENCOURAGES STAFF TO KEEP AN EYE ON VISIT SHE "MAY TRY AND SNEAK PT ALCOHOL".
--- NOTE | 2018-12-29 02:04 | NUR ---
PT CONTINUES TO BE CONFUSED AND VERBALLY AGGRESSIVE. PT ASKED WHY HE WAS STILL HERE, HE WAS UPDATED ON HIS CONDITION AND PLAN OF CARE. PT RESPONDED WITH "THIS IS BULLSHIT". PT CONTINUES TO ATTEMPT GETTING OUT OF BED, PULLING ON NEVILLE AND RESTRAINTS.
[2018-12-29 03:46] LABS: Anion Gap 8 mmol/L (6-16); Blood Urea Nitrogen 9 mg/dL (8-24); Bun/Creatinine Ratio 14.2 (12.0-20.0); CO2, Blood 26 mmol/L (21-32); Calcium, Blood 8.6 mg/dL (8.5-10.1); Chloride, Blood 107 mmol/L (98-108); Creatinine, Blood 0.63 mg/dL (0.60-1.20); Glomerular Filtration Rate >60 (60-); Glucose, Blood 144 mg/dL (70-99); Magnesium, Blood 1.6 mg/dL (1.6-2.4); Potassium, Blood 3.5 mmol/L (3.5-5.5); Sodium, Blood 141 mmol/L (136-145)
--- NOTE | 2018-12-29 06:03 | NUR ---
SHIFT SUMMARY NO ACUTE CHANGES OVERNIGHT. PT SLEPT MOST OF THE NIGHT WITH NO FURTHER OUTBURSTS (SEE PREVIOUS NOTE). WILL REPORT TO DAYSHIFT NURSE.
--- NOTE | 2018-12-29 07:27 | NUR ---
ASSUMED CARE OF PT. PT IS A LITTE SLEEPY BUT AROUSABLE TO VOICE. PT IS ORIENTED TO SITUATION, SELF, PLACE AND TIME. PT IS CALM AT THIS TIME. DENIES PAIN AT THIS TIME. PT IS ON PRECEDEX DRIP @ 1.4MCG/KG/HR. PT HAS A DELVIN VEST AT THIS TIME. PT IS SOMEWHAT IMPULSIVE. PT HAS NOT TRIED TO PULL ANY LINES AT THIS TIME. PT FOLLOWING COMMANDS.
--- NOTE | 2018-12-29 07:39 | NUR ---
PT HAS STATED " SOON THE POWER IS ON, I WILL GET DRESSED AND LEAVE." EXPLAINED TO PATIENT THAT HIS CONDITION DOES NOT WARRANT HIM TO BE ABLE TO GO HOME YET. PT STATED "I WILL SIGN THE PAPER WORK. I KNOW MY BODY."
--- NOTE | 2018-12-29 08:07 | NUR ---
DR. SPEARS CAME BY TO SEE PT. UPDATED HIM OF PT'S STATUS. PT HAS STATED TO DR. SPEARS THAT HE WANTED TO GO HOME. PT HAS STATED "I HAVE BEEN IN HERE FOR A WEEK." EXPLAINED TO PT PLAN OF CARE FOR TODAY. TRY TO SEE IF HE IS STEADY ON HIS FEET.
--- NOTE | 2018-12-29 10:38 | NUR ---
PT HAS SAT ON THE RECLINER CHAIR FOR ABOUT AN HOUR AND A HALF. PT WAS ABLE TO TRANSFER FROM THE BED TO THE CHAIR. PT IS STILL SLIGHTLY UNSTEADY ON HIS FEET. EXPLAINED TO PT THAT HE HAS TO USE HIS CALL LIGHT WHENEVER HE NEEDS TO GET OUT OF BED TO PREVENT FROM FALLING. PT AGREES BUT FORGETS ABOUT IT. PT HAS A CHAIR ALARM WHILE HE WAS SITTING ON THE RECLINER. PT IS COOPERATIVE. PT ON PRECEDEX DRIP @ 0.7 MCG/KG/HR.
--- NOTE | 2018-12-29 12:31 | NUR ---
PT IS BACK TO BED AFTER SITTING IN THE CHAIR EATING HIS LUNCH. PT IS USING A WALKER. ENCOURAGED PT TO MOVE LEGS WHILE SITTING ON THE CHAIR AND MARCH IN PLACE WHILE STANDING. PT IS A LITTLE STEADY BUT SO FAR WAS ABLE TO AMBULATE A FEW DISTANCES INSIDE THE ROOM USING A WALKER.
--- NOTE | 2018-12-29 13:21 | NUR ---
DR. SPEARS WAS NOTIFIED REGARDING PT'S PROGRESS. INFORMED HIM PT HAS BEEN AMBULATING INSIDE THE ROOM USING A WALKER. PRECEDEX HAS BEEN FOR FOR ABOUT 2 HOURS. PT HAS STATED TO THIS NURSE THAT HE DOESN'T WANT TO STOP DRINKING WHEN HE GOES HOME. HE STATED HE WILL DECREASE HIS INTAKE BUT NOT STOP. INFORMED DR. HUITRON ABOUT THIS. HE TRIED TO CALL THOMPSON, PT'S DAUGHTER REGARDING WHAT PT'S WANTS. 5614-PT'S ARISTEO DAUGHTER CALLED. INFORMED HER THAT DR. SPEARS TRIED TO CALL HER REGARDING PT'S WANTS OF CONTINUING TO DRINK WHEN HE GETS HOME. EXPLAINED TO DAUGHTER THAT IT IS DIFFICULT TO DETOX A PATIENT WHO IS NOT WILLING TO STOP DRINKING. PT IS ALERT AND ORIENTED. MORE AND MORE COOPERATIVE AND MORE ALERT THE DAY GOES BY.
[2018-12-29] MEDS ORDERED: LISI20 PO (18:15)
--- NOTE | 2018-12-29 18:25 | NUR ---
SHIFT SUMMARY: PT HAS BEEN VERY COOPERATIVE TODAY. CALM ALL DAY. PT IS EAGER TO DO ANY ACTIVITY THAT CAN HELP HIM IMPROVE HIS STRENGTH. HE IS HOPING TO BE ABLE TO GO HOME TOMORROW. PT HAD PHYSICAL THERAPY TODAY, WAS ABLE TO AMBULATE IN THE HALLWAY AND BACK TO HIS ROOM. PT DID RECEIVED 4 MG OF ATIVAN, HR HAS BEEN IN THE 130S WITH ACTIVITY. PT SEEMED TO CALM DOWN AFTER TAKING HIS BEER. TREMORS ARE LESS.
--- NOTE | 2018-12-29 18:35 | NUR ---
DR. SPEARS WAS NOTIFIED THAT PT HAS RECEIVED 4MG DOSE OF ATIVAN DESPITE THE CAN OF BEER HE HAD SINCE PT'S HR IN TH 120S-130S AND INCREASES MORE WITH ACTIVITY. PT'S TREMORS HAS LESSENED SIGNIFICANTLY AFTER RECEIVING 4MG IV ATIVAN AND A CAN OF BEER. INFORMED HIM TOO REGARDING PT TAKING LISINOPRIL 20MG DAILY AT HOME. PT HAD RECEIVED A DOSE OF HYDRALAZINE @ AROUND 1531. ORDERS RECEIVED.
--- NOTE | 2018-12-29 20:00 | NUR ---
PATIENT RESTING IN BED, COOPERATIVE ANSWERING QUESTIONS, SLIGHTLY CONFUSED WITH DATE. SLIGHT SHAKY AT HAVING DIFFICULTY KEEPING URINAL IN PLACE TO VOID, PATIENT REMINDED ON HOW TO USE CALL LIGHT TO GET ASSISTANCE WITH USING THE URINAL. PATIENT VERBALIZED THAT HE IS SEEING HIS (WHO HAS ) IN THE CHAIR AT BEDSIDE. MONITOR IN PLACE SHOWING SINUS TACH WITH HEART RATE UP TO 150'S AT TIMES WHEN ATTEMPTING TO USE URINAL OR WHEN GETTING UP OUT OF BED.
--- NOTE | 2018-12-29 21:00 | NUR ---
PATIENT CONTINUES TO HAVE DIFFICULTY WITH USING URINAL IN BED YET IS NOT CALLING FOR ASSISTANCE HAS SPILLED URINAL SEVERAL TIMES. CONDOM CATH PLACED TO HELP CATCH VOID.
--- NOTE | 2018-12-30 01:17 | NUR ---
PATIENT HAVING DIFFICULTY SLEEPING, WHEN ASKED IF HE WAS FEELING LIKE HE NEEDED MORE ATIVAN PATIENT VERBALIZED THAT HE WANTED TO HAVE A CLEAR HEAD IN THE MORNING SO HE CAN GO HOME
--- NOTE | 2018-12-30 03:26 | NUR ---
PATIENT AWAKE TALKING TO PEOPLE IN THE ROOM WHO ARE NOT THERE. PATIENT ALSO PULLED OUT IV AND WAS ATTEMPTING TO GET OUT OF BED TO GO TO THE "[facility]" TO BUY CIGARETS
[2018-12-30 04:32] LABS: Anion Gap 11 mmol/L (6-16); Blood Urea Nitrogen 10 mg/dL (8-24); CO2, Blood 24 mmol/L (21-32); Calcium, Blood 8.8 mg/dL (8.5-10.1); Chloride, Blood 106 mmol/L (98-108); Creatinine, Blood 0.77 mg/dL (0.60-1.20); Glomerular Filtration Rate >60 (60-); Glucose, Blood 121 mg/dL (70-99); Potassium, Blood 3.3 mmol/L (3.5-5.5); Sodium, Blood 141 mmol/L (136-145)
--- NOTE | 2018-12-30 07:34 | NUR ---
SUMMARY PATIENT AWAKE T/O NIGHT, BECOMING MORE RESTLESS THIS AM. MEDICATED WITH ATIVAN TO HELP PATIENT RELAX. PATIENT UP TO CHAIR WITH ASSIST, POOR COORDINATION AND TREMOR CONTINUES. PATIENT CONTINUES TO SEE PEOPLE IN THE ROOM WHO ARE NOT THERE. SEVERAL TIMES VERBALIZED THAT HE WAS TALKING TO HIS WHO HAS . CONDOM CATH IN PLACE T/O NIGHT TO MONITOR I&O DUE TO PATIENT HAVING DIFFICULTY USING URINAL.
--- NOTE | 2018-12-30 07:35 | NUR ---
Recieved report from Mayuri LIANG. Patient sitting up in bed and starting to try to climb out of bed. He is on RA and sats in the low to mid 90%s. His HR 100'140 with exertion. He is very weak and wiggles to bed end and tries to get out of bed. He has 20ga IV to JOSHUA and is flushed and SL. He redirects very briefly and repetitively trys to get out of bed, contieu to redirect. He has condom cath in p[lace and he puuled off while trying to get out of bed. Mayuri LIANG and I got him up to chair with assist of Mary HOLDER. Changed bed linen.
--- NOTE | 2018-12-30 09:30 | NUR ---
Replaced condom cath after getting patient back to bed, after repeatingly trying to get up and numerous redirections that last only briefly. He insist on staff buying him Black Velvet and a pack of smokes. He tolerated PO potassium and IV Folic Acid.
--- NOTE | 2018-12-30 11:30 | NUR ---
Patient palce in [place] vest and order placed at 100.. He continues to try to get out of bed to go smoke or drink and wants to go se mother. Multiple redirections for brief periods. He is sitting back in chair awaiting lunch and wants to get right back in bed. His sister earl is in room coaching him.
--- NOTE | 2018-12-30 13:30 | NUR ---
He has pulled addy over head and help in to bathroom and he was a strong one person assist. Nostop questions about smoking and drinking. He got tearful about for brief period and right back to drinking and smoking. PT worked and was not able to work as long as yesterday and stated he was very tired. He is currently back in bed. Placed pull ups on him because he continues to pull off condom cath with movemenyt climbing out of bed.
--- NOTE | 2018-12-30 15:30 | NUR ---
Bed alarm going off and patient naked at end of bed. Changed linen and place addy back on and daughter. He was hypertensive and medicated per MAR. Daughter in room and alittle upset, thought he would be doing better and tried to explain and she was somewhat disappointed. He was hypertensive 160 and HR 133. Started lithium.
--- NOTE | 2018-12-30 17:30 | NUR ---
patient a little more relaxed daughter went home and sister earl is here, mother called and he has been calm since. He is currently resting in room . Hydralazine worked minimally. No other significant changes.
--- NOTE | 2018-12-30 20:57 | NUR ---
PATIENT RESTLESS AND AGITATED ATTEMPTING TO GET UP OUT OF BED. PATIENT WANTING TO GET UP AND GO OUTSIDE TO SMOKE, BECOMING VERY ANGRY WHEN EXPLAINED THE NEED TO STAY IN THE ROOM DUE TO NOT BEING ABLE TO HAVE HIM ON THE HEART MONITOR WHEN HE IS OUTSIDE. VEST DELVIN, SIDE RAILS AND BED ALARM ON TO PREVENT FALL. LIBRIUM GIVEN TO HELP PATIENT RELAX. CONDOM CATH IN PLACE DUE TO PATIENT HAVING DIFFICULT USING THE URINAL AND MULTIPLE TIMES PORING URINAL INTO THE BED. ICE PLATFORM SUPERVISOR SHOWING SINUS TACH. WITH HEART RATE UP TO 150'S WHEN UPSET.
--- NOTE | 2018-12-31 01:54 | NUR ---
PATIENT ANGRY AND RESTLESS WANTING TO LEAVE AND GO COLLECT RENT MONEY. EXPLAINED TO PATIENT THAT IT IS THE MIDDLE OF THE NIGHT AND THAT HE IS SICK IN THE HOSPITAL. PATIENT CONTINUES TO ATTEMPT TO CLIMB OUT OF BED WITH OUT ASSISTANCE. PATIENT GIVEN TELEPHONE TO CALL FAMILY WITH NO ANSWER FROM FAMILY. PATIENT PULLING AT HEART MONITOR AND RIPPING LINEN AND DELVIN VEST, DESPITE FREQUENT REDIRECTION AND REORIENTATION. BILAT WRIST RESTRAINTS PLACED TO KEEP PATIENT FROM PULLING APART HEART MONITOR AND OTHER HOSPITAL EQUIPMENT, AND TO REMIND HIM THAT HE NEEDS TO CALL FOR ASSISTANCE.
--- NOTE | 2018-12-31 03:10 | NUR ---
PATIENT AWAKE PULLING ON WRIST RESTRAINTS AND PUTTING BOTH FEET OUT OF BED, ATTEMPTING TO GET OUT OF BED. PATIENT VERBALIZED THAT HE IS WANTING TO GET HIS CAR AND GO DRIVE OUT TO GET HIS RENT MONEY. PATIENT VERBALIZED HE WAS SEEING HIS BESIDE HIS BED AND APPEARS SHOCKED THAT I DON'T SEE HER. THEN NEXT ACKNOWLEDGING THAT SHE HAS , WHICH IS WHY HE WANTS TO GO GET THE RENT MONEY SO HE CAN PAY FOR HER . DOCTOR KRYSTAL IN TO SEE PATIENT. PATIENT NOW IN 4 POINT RESTRAINTS TO PREVENT FALL, AND PULLING OFF HEART MONITOR
--- NOTE | 2018-12-31 03:41 | NUR ---
PATIENT REMAINS ANGRY REFUSING LAB DRAW AT THIS TIME.
[2018-12-31 04:23] LABS: Anion Gap 13 mmol/L (6-16); Blood Urea Nitrogen 10 mg/dL (8-24); Bun/Creatinine Ratio 12.3 (12.0-20.0); CO2, Blood 23 mmol/L (21-32); Calcium, Blood 9.1 mg/dL (8.5-10.1); Chloride, Blood 105 mmol/L (98-108); Creatinine, Blood 0.82 mg/dL (0.60-1.20); Glomerular Filtration Rate >60 (60-); Glucose, Blood 126 mg/dL (70-99); Potassium, Blood 3.5 mmol/L (3.5-5.5); Sodium, Blood 141 mmol/L (136-145)
--- NOTE | 2018-12-31 05:59 | NUR ---
SUMMARY PATIENT RESTLESS T/O NIGHT. SEVERAL DOSES OF LIBRIUM WITH NO CHANGE TO CONFUSION OR BEING RESTLESS. PATIENT NOW IN 4 POINT RESTRAINTS DUE TO CONTINUES TO ATTEMPT TO GET OUT OF BED WITHOUT ASSISTANCE, AND PATIENT PULLING APART MONITORS. CONDOM CATH REMAINS IN PLACE DRAINING URINE WELL. PATIENT UP TO BSC SEVERAL TIMES T/O NIGHT ATTEMPTING TO HAVE BM ONLY PASSING FLATUS. PATIENT VERBALIZING THAT HE IS SEEING HIS IN ROOM AND ALSO SEEING A BOY MESSING WITH HIS BALLOONS T/O NIGHT.
--- NOTE | 2018-12-31 08:30 | NUR ---
ASSESSMENT- PT. AWAKE AND RESTLESS. PULLING ON RESTR. AND ASKING FOR A KNIFE TO CUT THEM OFF. PT. IS REDIRECTABLE. PT. KNOWS THE YEAR AFTER FEW MIN. OF WORKING IT OUT. ORIENTED TO SELF, AND PLACE ( mERC), BUT HAS VISUAL HALLUCINATIONS AND IS TALKING TO PEOPLE IN THE ROOM. BP STABLE. MONITOR SHOWS ST WITH HR 120-140'S. NO RESP DISTRESS. NO GI DISTRESS. PT. REMOVED [place] CATH AND WILL NOT PUT BACK ON DUE TO EXCORIATION ON THE PENIS.
--- NOTE | 2018-12-31 09:10 | NUR ---
CHAIR- BED BATH GIVEN, LINEN CHANGE, PT TRANSFERRED TO CHAIR WITH ASSIST X 2. RESTR. CHANGED TO DELVIN VEST ONLY.
--- NOTE | 2018-12-31 12:30 | NUR ---
ACTIVITY- PT. RETURNED TO BED WITH ASSIST X1 AND WALKER. SEROQUEL 25MG PO GIVEN FOR CON'T HALLUCINATIONS. PT. THINKS WILL BE COMING IN AND THERE IS A MAN IN THE ROOM WITH HIM.
--- NOTE | 2018-12-31 16:21 | NUR ---
SLEEPING- PT. FELL ASLEEP AFTER SEROQUEL GIVEN AND CO'NT TO SLEEP. HR DOWN TO 90'S PAST LOPRESSOR.
--- NOTE | 2018-12-31 16:57 | NUR ---
O2- 2L/NC APPLIED DUE TO SAO2 DOWN TO 88% WHILE SLEEPING.
--- NOTE | 2018-12-31 18:59 | NUR ---
SUMMARY- PT. HAS BEEN LESS AGITATED ALL DAY. REMAINS SLEEPY PAST THE SEROQUEL BUT WAS ABLE TO GET OUT OF BED TO CHAIR FOR DINNER. CON'T TO HAVE FREQ PRODUCTIVE COUGH.
--- NOTE | 2018-12-31 20:04 | NUR ---
ASSUMED CARE OF PT PT IN DELVIN VEST SLEEPING SUPINE WITH HOB AT 30 DEGREES. PT ALERT AND ORIENTED TO SELF AND PLACE WITH CONFUSION ABOUT SITUATION. PT IS COOPERATIVE AND APPROPRIATE IN ANSWERING QUESTIONS AT THIS TIME. PLEASE SEE FULL SHIFT ASSESSMENT.
[2019-01-01 04:22] LABS: Hematocrit 33.6 % (37.0-53.0); Hemoglobin 11.1 g/dL (13.5-17.5); Mean Corpuscular HGB 34.7 pg (26.0-34.0); Mean Corpuscular Volume 105 fL (80-100); Platelet Count 411 K/mm3 (150-400); RDW Coefficient Variation 12.3 % (11.7-14.2); White Blood Cell Count 9.59 K/mm3 (4.00-11.30)
[2019-01-01 04:39] LABS: Albumin, Blood 2.5 g/dL (3.4-5.0); Anion Gap 9 mmol/L (6-16); Blood Urea Nitrogen 16 mg/dL (8-24); Bun/Creatinine Ratio 15.8 (12.0-20.0); CO2, Blood 28 mmol/L (21-32); Calcium, Blood 8.9 mg/dL (8.5-10.1); Chloride, Blood 105 mmol/L (98-108); Creatinine, Blood 1.01 mg/dL (0.60-1.20); Glomerular Filtration Rate >60 (60-); Glucose, Blood 113 mg/dL (70-99); Phosphorus, Blood 5.4 mg/dL (2.5-4.9); Potassium, Blood 3.5 mmol/L (3.5-5.5); Sodium, Blood 142 mmol/L (136-145)
--- NOTE | 2019-01-01 05:48 | NUR ---
SHIFT SUMMARY NO ACUTE CHANGES OVERNIGHT. PT SLEPT SOUNDLY WITH FEW PERIODS OF WAKEFULNESS. PT WAS CONFUSED UPON WAKING THINKING IT WAS DAYTIME AND BELIEVED THAT HE WAS "IN HIS MOM'S KITCHEN". PT ALSO SPENT PERIODS OF TIME "TALKING" TO HIS . PT WAS PLEASANT AND COOPERATIVE THROUGHOUT SHIFT AND DID NOT NEED ANY MEDICATION TO EASE ANIETY. PT ABLE TO AMBULATE WITH STANDBY ASSIST AND WALKER TO USE BEDSIDE COMMODE. PT APPEARED STEADY ON HIS FEET AND WAS ABLE TO APPROPRIATELY AND SAFELY FOLLOW DIRECTIONS. VSS. PT CONTINUES TO HAVE PRODUCTIVE COUGH AND IS ON 2L NC. PT MEDICATED WITH ROBITUSSIN ONE TIME PRIOR TO BEDTIME. WILL REPORT TO DAYSHIFT NURSE.
--- NOTE | 2019-01-01 09:40 | NUR ---
PT AWAKE AND ALERT THIS AM AT 0730. PT ORINETED TO SELF, PLACE, TIME, AND YEAR. PT TEARFUL VERY RECENTLY. DELVIN VEST REMOVED. BED ALARM ON PT MAY BE IMPULSIVE. FALL RISK AND IMPORTANCE OF CALLING RN FOR HELP OR TO GET UP REVIEWED W PT. O2 REMOVED SATS 98% ON 2L. SATS 93% ON RA. LUNGS CLEAR. PLAN OOB TO CHAIR, PT/OT.
--- NOTE | 2019-01-01 09:43 | NUR ---
OT IN W PT
--- NOTE | 2019-01-01 14:51 | NUR ---
PT AMBULATING IN UNIT WITH PT. PT VERY CLEAR ABOUT WANTING TO GO HOME
--- NOTE | 2019-01-01 16:37 | NUR ---
REPORT GIVEN TO [facility] FLO[facility] RN. PT TO BE TRANSFERED TO ROOM 361
--- NOTE | 2019-01-01 18:16 | NUR ---
SHIFT SUMMARY PT WAS XFER FROM ICU THIS SHIFT, REC REPORT FROM GARTH DYER @ 1630, NO ACUTE CHANGES SINCE ASSUMING CARE. PT REQ TO SMOKE IMMED AFTER ROOMED, DAUGHTER TOOK PT OUT IN W/C, NICOTINE PATCH REMOVED @ 1700. PT SITTING UP EATING DINNER AT THIS TIME, WILL CONT TO MONITOR UNTIL REPORT GIVEN TO CHARMAINE LIANG.
--- NOTE | 2019-01-02 03:04 | NUR ---
SHIFT SUMMARY PT WAS RESTING QUIETLY WATCHING TV DURING SHIFT REPORT. PT THEN OOB, SETTING BED ALARM OFF, NEEDING TO VOID. PT WEAK AND UNSTEADY GETTING TO BSC. PT BACK TO BED FOR A SHORT WHILE, UNTIL SOMEONE CAME TO TAKE HIM OUT TO [facility]. FAMILY TOOK PT OUT IN W/C, THEN LEAVING CIGARETTES AND MID LEVEL PROJECT MANAGER WITH PT. PT UP TO BTHRM DURING THE NIGHT, SMOKING IN THE BATHRM. CIGARETTES AND MID LEVEL PROJECT MANAGER PLACED IN PT'S DRAWER. PT INSTRUCTED NOT TO SMK IN BUILDING AT ALL. PT INCONTINENT OF URINE DURING THE NIGHT WELL. REPORTED URGENCY AND UNABLE TO MAKE IT TO BTHRM SOMETIMES, EVER SINCE HAVING A CATHETER PLACED ON A PREVIOUS VISIT. BED LINENS AND GOWN CHANGED. PT RESTING QUIETLY AT THIS TIME. CALL LT IN REACH. BED ALARM ON FOR SAFETY.
[2019-01-02 05:02] LABS: Albumin, Blood 2.4 g/dL (3.4-5.0); Anion Gap 7 mmol/L (6-16); Blood Urea Nitrogen 18 mg/dL (8-24); Bun/Creatinine Ratio 18.3 (12.0-20.0); CO2, Blood 27 mmol/L (21-32); Calcium, Blood 8.6 mg/dL (8.5-10.1); Chloride, Blood 105 mmol/L (98-108); Creatinine, Blood 0.98 mg/dL (0.60-1.20); Glomerular Filtration Rate >60 (60-); Glucose, Blood 115 mg/dL (70-99); Phosphorus, Blood 3.6 mg/dL (2.5-4.9); Sodium, Blood 139 mmol/L (136-145)
[2019-01-02] MEDS ORDERED: ACET325 PO (11:35)
[2019-01-02] MEDS ORDERED: ROBITUSSIN COU237 ML PO (11:36)
[2019-01-02] MEDS ORDERED: METO25ER PO (11:37)
[2019-01-02] MEDS ORDERED: [UNRECOGNIZED DRUG - OTHER] PO (11:39)
[2019-01-02] MEDS ORDERED: B-1100 MG PO (11:40)
[2019-01-02] MEDS ORDERED: TIOT18 INH (11:41)
[2019-01-02] MEDS ORDERED: ALBU90OI INH (11:41)
--- NOTE | 2019-01-02 12:55 | NUR ---
DISCHARGED TO HOME WITH HIS [id number]. HE HAS HIS INSTRUCTIONS, SMOKING AND ALCOHOL CESSATION INFO AND HIS BELONGINGS. HE WORKED WELL WITH PT WALKING IN THE [place] AND GOING UP AND DOWN STEPS. NO HALLUCINATIONS. NO SIGNIFICANT TREMORS. SAYS HE HAS BEEN THROUGH [facility] BEFORE AND TRIED AA AND SAYS HE IS BETTER OFF TRYING TO QUIT ON HIS OWN. HH HAS BEEN NOTIFIED. FACE SHEET HAS BEEN UPDATED. JUST SPOKE WITH . SHE AGREES TO CHANGE SPIRIVA TO RESPIMAT INSTEAD. AND CANCEL TYLENOL.
[2019-01-02] MEDS ORDERED: SPIRIVA RESPIMAT4 GM INH (13:00)
== END 2019-01-02 12:38 | disposition home health service (06) | DRG 92 ==
LOC: ER 13:22 → ERHOLD 16:40 → PCU 12-23 14:49 → ICUE 12-25 03:12 → MEDS 01-01 16:50 → ENPENDDIS 01-02 11:29 → MEDS 01-02 12:38
PROVIDERS: Hospitalist; Internal Medicine; Physician Assistant; ADMIT Hospitalist
DX: G92 Toxic encephalopathy (principal); E87.1 Hypo-osmolality and hyponatremia; E87.0 Hyperosmolality and hypernatremia; F10.231 Alcohol dependence with withdrawal delirium; T83.83XA Hemorrhage due to genitourinary prosthetic devices, implants and grafts, initial encounter; F10.27 Alcohol dependence with alcohol-induced persisting dementia; T43.621A Poisoning by amphetamines, accidental (unintentional), initial encounter; F15.10 Other stimulant abuse, uncomplicated; T68.XXXA Hypothermia, initial encounter; E87.6 Hypokalemia; R73.9 Hyperglycemia, unspecified; Y92.9 Unspecified place or not applicable; Y90.0 Blood alcohol level of less than 20 mg/100 ml
CPT/HCPCS: 36415; 51700; 51702; 51703; 70450; 71045; 80048; 80053; 80069; 81003; 82140; 82550; 82947; 83735; 85014; 85018; 85025; 85027; 85610; 93005; 93010; 94640; 94668; 94760; 96365-59; 96366-59; 96367-59; 96375-59; 96376-59; 97110; 97112; 97116; 97162; 97166; 97530; 97535; 99285-25; G0480; J0360; J1630; J2060; J2310; J3411; J3475; J3480; J7030; J7042; J7120

== ENCOUNTER → 2020-03-28 | Outpatient (CLI) | payer OTHER ==
[~2020-03-28] MED LIST changes: +ACET325 PO; +ALBU90OI INH; +B-1100 MG PO; +LISI20 PO; +METO25ER PO; +ROBITUSSIN COU237 ML PO; +SPIRIVA RESPIMAT4 GM INH; +TIOT18 INH; +[UNRECOGNIZED DRUG - OTHER] PO
[2020-03-28 17:44] LABS: BASOPHILS ABSOLUTE AUTO 0.05 K/mm3 (0.00-0.23); BASOPHILS PERCENT AUTO 1 % (0-2); EOSINOPHILS ABSOLUTE AUTO 0.15 K/mm3 (0.00-0.68); EOSINOPHILS PERCENT AUTO 2 % (0-6); Hematocrit 47.1 % (37.0-53.0); Hemoglobin 16.3 g/dL (13.5-17.5); IMMATURE GRAN ABSOLUTE AUTO 0.01 K/mm3 (0.00-0.10); IMMATURE GRAN PERCENT AUTO 0 % (0-1); LYMPHOCYTES ABSOLUTE AUTO 1.46 K/mm3 (0.84-5.20); LYMPHOCYTES PERCENT AUTO 24 % (21-46); MONOCYTES ABSOLUTE AUTO 0.49 K/mm3 (0.16-1.47); MONOCYTES PERCENT AUTO 8 % (4-13); Mean Corpuscular HGB 33.7 pg (26.0-34.0); Mean Corpuscular HGB Conc 34.6 g/dL (31.5-36.5); Mean Corpuscular Volume 97 fL (80-100); Mean Platelet Volume 9.2 fL (9.1-12.4); NEUTROPHILS ABSOLUTE AUTO 3.99 K/mm3 (1.96-9.15); NEUTROPHILS PERCENT AUTO 65 % (41-73); Platelet Count 281 K/mm3 (150-400); RDW Coefficient Variation 12.2 % (11.7-14.2); RDW Standard Deviation 44.3 fL (35.1-46.3); Red Blood Cell Count 4.84 M/mm3 (4.30-5.90); White Blood Cell Count 6.15 K/mm3 (4.00-11.30)
[2020-03-28 18:30] LABS: Alanine Aminotransfer (ALT/SGP 34 U/L (12-78); Albumin, Blood 3.6 g/dL (3.4-5.0); Alk Phos 106 U/L (50-136); Anion Gap 4 mmol/L (6-16); Aspartate Aminotrans (AST/SGOT 30 U/L (12-37); Bilirubin, Total 0.5 mg/dL (0.1-1.0); Blood Urea Nitrogen 18 mg/dL (8-24); Bun/Creatinine Ratio 18.3 (12.0-20.0); CHOL/HDL RATIO 5.9; CO2, Blood 30 mmol/L (21-32); Calcium, Blood 9.3 mg/dL (8.5-10.1); Chloride, Blood 104 mmol/L (98-108); Cholesterol 219 mg/dL (50-200); Creatinine, Blood 0.99 mg/dL (0.60-1.20); Free Thyroxine 0.94 ng/dL (0.70-1.60); Globulin, Blood 3.6 g/dL (2.2-4.0); Glomerular Filtration Rate >60 (60-); Glucose, Blood 103 mg/dL (70-99); HDL Cholesterol 37 mg/dL (>39); LDL/HDL RATIO 3.8; Low Density Lipoprotein Chol 139 mg/dL (0-110); Potassium, Blood 4.4 mmol/L (3.5-5.5); Sodium, Blood 138 mmol/L (136-145); Thyroid Stimulating Hormone 0.555 uIU/mL (0.360-4.800); Total Protein, Blood 7.2 g/dL (6.4-8.2); Triglycerides 213 mg/dL (30-160); Very Low Density Lipoprot Chol 42 mg/dL (6-32)
== END | disposition home or self-care (01) ==
LOC: LAB 16:02 → LAB SHORT 16:02
PROVIDERS: Nurse Practitioner Family
DX: Z11.59 Encounter for screening for other viral diseases (principal); E78.5 Hyperlipidemia, unspecified; I10 Essential (primary) hypertension
CPT/HCPCS: 80053; 80061; 84439; 84443; 85025; 86803

== ENCOUNTER → 2022-04-02 | Outpatient (CLI) | payer OTHER ==
[2022-04-02 18:24] LABS: Albumin, Blood 3.7 g/dL (3.4-5.0); Bilirubin, Total 0.4 mg/dL (0.1-1.0); Bun/Creatinine Ratio 20.5 (12.0-20.0); Calcium, Blood 9.2 mg/dL (8.5-10.1); Creatinine, Blood 1.22 mg/dL (0.60-1.20); Globulin, Blood 3.8 g/dL (2.2-4.0); Potassium, Blood 4.2 mmol/L (3.5-5.5); Total Protein, Blood 7.5 g/dL (6.4-8.2)
== END | disposition home or self-care (01) ==
LOC: LAB SHORT 16:41
PROVIDERS: Nurse Practitioner Family
DX: R73.03 Prediabetes (principal)
CPT/HCPCS: 80053; 83036

== ENCOUNTER → 2022-05-21 | Outpatient (CLI) | payer OTHER ==
[2022-05-21 20:03] LABS: Alanine Aminotransfer (ALT/SGP 73 U/L (12-78); Albumin, Blood 3.8 g/dL (3.4-5.0); Albumin/Globulin Ratio 1.1 (0.8-1.8); Alk Phos 88 U/L (50-136); Anion Gap 11 mmol/L (6-16); Aspartate Aminotrans (AST/SGOT 88 U/L (12-37); Bilirubin, Total 0.6 mg/dL (0.1-1.0); Blood Urea Nitrogen 37 mg/dL (8-24); Bun/Creatinine Ratio 16.5 (12.0-20.0); CHOL/HDL RATIO 7.4; CO2, Blood 25 mmol/L (21-32); Calcium, Blood 10.4 mg/dL (8.5-10.1); Chloride, Blood 106 mmol/L (98-108); Cholesterol 229 mg/dL (50-200); Creatinine, Blood 2.24 mg/dL (0.60-1.20); Globulin, Blood 3.6 g/dL (2.2-4.0); Glomerular Filtration Rate 32 (60-); Glucose, Blood 124 mg/dL (70-99); HDL Cholesterol 31 mg/dL (>39); LDL/HDL RATIO Unable to Calculate; Low Density Lipoprotein Chol Unable to Calculate mg/dL (0-110); Potassium, Blood 4.1 mmol/L (3.5-5.5); Sodium, Blood 142 mmol/L (136-145); Total Protein, Blood 7.4 g/dL (6.4-8.2); Triglycerides 457 mg/dL (30-160); Very Low Density Lipoprot Chol Unable to Calculate mg/dL (6-32)
== END | disposition home or self-care (01) ==
LOC: LAB SHORT 19:33
PROVIDERS: Nurse Practitioner Family
DX: I73.00 Raynaud's syndrome without gangrene (principal); G62.9 Polyneuropathy, unspecified; R73.09 Other abnormal glucose
CPT/HCPCS: 80053; 80061; 83036

== ENCOUNTER → 2022-06-14 | Outpatient (CLI) | payer MEDICARE, OTHER ==
[2022-06-14 17:03] LABS: BASOPHILS ABSOLUTE AUTO 0.07 K/mm3 (0.00-0.23); BASOPHILS PERCENT AUTO 1 % (0-2); EOSINOPHILS ABSOLUTE AUTO 0.31 K/mm3 (0.00-0.68); EOSINOPHILS PERCENT AUTO 4 % (0-6); Hematocrit 39.5 % (37.0-53.0); Hemoglobin 13.3 g/dL (13.5-17.5); IMMATURE GRAN ABSOLUTE AUTO 0.02 K/mm3 (0.00-0.10); IMMATURE GRAN PERCENT AUTO 0 % (0-1); LYMPHOCYTES ABSOLUTE AUTO 2.37 K/mm3 (0.84-5.20); LYMPHOCYTES PERCENT AUTO 29 % (21-46); MONOCYTES ABSOLUTE AUTO 0.74 K/mm3 (0.16-1.47); MONOCYTES PERCENT AUTO 9 % (4-13); Mean Corpuscular HGB 35.4 pg (26.0-34.0); Mean Corpuscular HGB Conc 33.7 g/dL (31.5-36.5); Mean Corpuscular Volume 105 fL (80-100); Mean Platelet Volume 9.6 fL (9.1-12.4); NEUTROPHILS ABSOLUTE AUTO 4.56 K/mm3 (1.96-9.15); NEUTROPHILS PERCENT AUTO 57 % (41-73); Platelet Count 297 K/mm3 (150-400); RDW Coefficient Variation 13.7 % (11.7-14.2); RDW Standard Deviation 53.1 fL (35.1-46.3); Red Blood Cell Count 3.76 M/mm3 (4.30-5.90); White Blood Cell Count 8.07 K/mm3 (4.00-11.30)
== END | disposition home or self-care (01) ==
LOC: LAB SHORT 11:15 → LAB 11:15
PROVIDERS: Nurse Practitioner Family
DX: R19.5 Other fecal abnormalities (principal)
CPT/HCPCS: 85025

== ENCOUNTER 2023-01-10 20:51 | Observation (INO) | payer MEDICARE ==
[~2023-01-10] VITALS: Ht 175.3 cm; Wt 91.4 kg
[2023-01-11 00:09] LABS: BASOPHILS ABSOLUTE AUTO 0.03 K/mm3 (0.00-0.23); BASOPHILS PERCENT AUTO 1 % (0-2); EOSINOPHILS ABSOLUTE AUTO 0.32 K/mm3 (0.00-0.68); EOSINOPHILS PERCENT AUTO 5 % (0-6); Hematocrit 38.9 % (37.0-53.0); Hemoglobin 13.5 g/dL (13.5-17.5); IMMATURE GRAN ABSOLUTE AUTO 0.01 K/mm3 (0.00-0.10); IMMATURE GRAN PERCENT AUTO 0 % (0-1); LYMPHOCYTES ABSOLUTE AUTO 1.57 K/mm3 (0.84-5.20); LYMPHOCYTES PERCENT AUTO 25 % (21-46); MONOCYTES ABSOLUTE AUTO 0.68 K/mm3 (0.16-1.47); MONOCYTES PERCENT AUTO 11 % (4-13); Mean Corpuscular HGB 34.4 pg (26.0-34.0); Mean Corpuscular HGB Conc 34.7 g/dL (31.5-36.5); Mean Corpuscular Volume 99 fL (80-100); Mean Platelet Volume 9.2 fL (9.1-12.4); NEUTROPHILS ABSOLUTE AUTO 3.68 K/mm3 (1.96-9.15); NEUTROPHILS PERCENT AUTO 58 % (41-73); Platelet Count 300 K/mm3 (150-400); RDW Coefficient Variation 12.2 % (11.7-14.2); RDW Standard Deviation 44.5 fL (35.1-46.3); Red Blood Cell Count 3.92 M/mm3 (4.30-5.90); White Blood Cell Count 6.29 K/mm3 (4.00-11.30)
[2023-01-11 00:18] LABS: Albumin, Blood 3.1 g/dL (3.4-5.0); Albumin/Globulin Ratio 0.9 (0.8-1.8); Bilirubin, Total 0.3 mg/dL (0.1-1.0); Bun/Creatinine Ratio 17.6 (12.0-20.0); Calcium, Blood 8.5 mg/dL (8.5-10.1); Creatinine, Blood 2.39 mg/dL (0.60-1.20); Globulin, Blood 3.3 g/dL (2.2-4.0); Total Protein, Blood 6.4 g/dL (6.4-8.2)
[2023-01-11 00:23] LABS: Source, Urine Clean Catch
[2023-01-11 00:25] LABS: Bilirubin, Urine Neg (Neg); Blood, Urine Neg (Neg); Glucose Qualitative, Urine Neg (Neg); Ketones, Urine Neg (Neg); Leukocyte Esterase, Urine Neg (Neg); Nitrite, Urine Neg (Neg); Protein, Urine Neg (Neg); Urobilinogen, Urine NORM (Normal)
[2023-01-11 00:36] LABS: Appearance, Urine Clear (Clear); Color, Urine Yellow (P-Yellow)
[2023-01-11 00:46] LABS: U Amphetamine Screen DETECTED; U Barbituate Screen Not Detected; U Benzodiazapine Screen Not Detected; U Buprenorphine Screen Not Detected; U Cannabinoids Screen Not Detected; U Cocaine Screen Not Detected; U Methadone Screen Not Detected; U Methamphetamine Screen DETECTED; U Opiates Screen Not Detected; U Oxycodone Screen Not Detected; U Phencyclidine Screen Not Detected; U Propoxyphene Screen Not Detected
[2023-01-11] MEDS ORDERED: LISI20 PO (02:15)
[2023-01-11] MEDS ORDERED: HYDCHL25 PO (02:15)
[2023-01-11] MEDS ORDERED: NIFEDIPINE (02:16)
[2023-01-11] MEDS ORDERED: FERSU300 PO (02:18)
--- NOTE | 2023-01-11 02:52 | NUR ---
PT ADMITTED TO ROOM ICU 8 UNDER MEDICAL FLOOR STATUS. PT PIVOT TRANSFERS TO BED FROM [facility]. NO COMPLAINTS WITH TRANSFER. PT TO ROOM AT 0200 THIS AM. GOOD HISTORIAN. ALERT AND ORIENTED. PLEASANT AND COOPERATIVE WITH CARE AND ASSESSMENT. PT VERY OPEN AND HONEST CONCERNING METH AND ALCOHOL USE. REPORT GIVEN TO GARTH BENJAMIN AT 0245.
--- NOTE | 2023-01-11 03:03 | NUR ---
ASSUMED CARE OF PATIENT FROM NATASHA LIANG, REVIEWED AND AGREE WITH ASSESSMENT. PATIENT CURRENTLY SLEEPING. REFUSED THIAMINE BECAUSE IT MAKES HIM FEEL FUNNY. CALL LIGHT IN REACH
--- NOTE | 2023-01-11 05:04 | NUR ---
SHIFT SUMMARY PATIENT IS ALERT AND ORIENTED X4. CIWA 0 AT THIS TIME. 02 SATS 93% ON 2L VIA NC. DENIES SOB. HR SR 90s, BP STABLE, DENIES CP PRESSURE. USES URINAL. REFUSED THIAMINE. D5 1/2 NS INF. CALL LIGHT IN REACH
--- NOTE | 2023-01-11 08:29 | NUR ---
PT LEAVING AMA.... THE PT PUT HIS CALL LIGHT ON AND ASKED THE WIRE HARNESS ASSEMBLER "WHEN CHECK OUT TIME?" THE WIRE HARNESS ASSEMBLER CAME AND GOT THIS RN. THIS RN WENT INTO THE ROOM AND THE PT SAID "I WANT TO LEAVE!" THIS RN INFORMED THE PT OF HIS RIGHTS AND THAT HE COULD LEAVE AMA IF HE WISHED BUT THAT HE WAS ON 2L NC TO KEEP HIS O2 SATS>90% PT STATED "I DON'T CARE I WANT TO LEAVE NOW!" THIS RN NOTIFIED THE ASSESSMENT NURSE WHO CALLED DR. BETANCOURT. PT REFUSED TO WAIT FOR DR. BETANCOURT AND SIGNED THE AMA PAPERS. THIS RN REMOVED HIS IV WNL. THE PT WAS VERY AGITATED, SWEATY AND SHAKEY WITH A FLUSHED FACE. DR. BETANCOURT WAS AT THE BEDSIDE THE PT WAS CALLING FOR A RIDE, HE DENIED ANY QUESTIONS TO HER.
[2023-01-11 08:51] LABS: Calcium, Blood 8.8 mg/dL (8.5-10.1); Creatinine, Blood 1.84 mg/dL (0.60-1.20); Potassium, Blood 4.2 mmol/L (3.5-5.5)
== END 2023-01-11 08:45 | disposition left against medical advice (07) ==
LOC: ER 20:51 → ERHOLD 20:52 → ICUE 01-11 01:55
PROVIDERS: Internal Medicine; ADMIT Internal Medicine
DX: T40.411A Poisoning by fentanyl or fentanyl analogs, accidental (unintentional), initial encounter (principal); J96.01 Acute respiratory failure with hypoxia; N18.30 Chronic kidney disease, stage 3 unspecified; F10.239 Alcohol dependence with withdrawal, unspecified; I95.9 Hypotension, unspecified
CPT/HCPCS: 36415; 71045; 80048; 80053; 81003; 83880; 85025; 93005; 93010; 96374; 96376; 99285-25; G0378; J2310; J7042

== ENCOUNTER 2023-02-14 09:55 | Day surgery (SDC) | payer MEDICARE, OTHER ==
[~2023-02-14] VITALS: Ht 180.3 cm; Wt 91.0 kg
[~2023-02-14 09:55] MED LIST changes: +FERSU300 PO; +HYDCHL25 PO; +NIFEDIPINE
--- NOTE | 2023-02-14 11:17 | NUR ---
02/14/23 1117 RAIN SAEED PT SMOKES 1PK CIGARETTS DAILILY SMOKES METH DAILY AND DRINKS A 5TH OF WHISKEY DAILY
[2023-02-14 12:56] VITALS: BP 100/86
--- NOTE | 2023-02-14 16:29 | NUR ---
02/14/23 162 RAIN SAEED RN FINISHED RECOVERY PT AND GOING OVER DC INSTRUCTIONS SENDING TCR RN TO LUNCH
== END 2023-02-14 13:02 | disposition home or self-care (01) ==
LOC: ORSCSDS 09:55
PROVIDERS: Internal Medicine Gastroenterology
PROC: 0DBL8ZX Excision of Transverse Colon, Via Natural or Artificial Opening Endoscopic, Diagnostic (ICD-10-PCS; principal; 2023-02-14 11:15)
PROC: 0DBN8ZX Excision of Sigmoid Colon, Via Natural or Artificial Opening Endoscopic, Diagnostic (ICD-10-PCS; principal; 2023-02-14 11:15)
DX: R19.5 Other fecal abnormalities (principal); D12.3 Benign neoplasm of transverse colon; D12.5 Benign neoplasm of sigmoid colon; K63.5 Polyp of colon; K57.30 Diverticulosis of large intestine without perforation or abscess without bleeding; K64.4 Residual hemorrhoidal skin tags; I12.9 Hypertensive chronic kidney disease with stage 1 through stage 4 chronic kidney disease, or unspecified chronic kidney disease; N18.30 Chronic kidney disease, stage 3 unspecified; E11.43 Type 2 diabetes mellitus with diabetic autonomic (poly)neuropathy; Z79.84 Long term (current) use of oral hypoglycemic drugs; Z79.899 Other long term (current) drug therapy; J44.9 Chronic obstructive pulmonary disease, unspecified; F17.210 Nicotine dependence, cigarettes, uncomplicated
CPT/HCPCS: 82947; 88305; J2250; J2704; J7120

== ENCOUNTER → 2023-02-25 | Outpatient (CLI) | payer MEDICARE, OTHER ==
[2023-02-25 18:04] LABS: BASOPHILS ABSOLUTE AUTO 0.06 K/mm3 (0.00-0.23); BASOPHILS PERCENT AUTO 1 % (0-2); EOSINOPHILS ABSOLUTE AUTO 0.25 K/mm3 (0.00-0.68); EOSINOPHILS PERCENT AUTO 4 % (0-6); Hematocrit 43.5 % (37.0-53.0); Hemoglobin 15.1 g/dL (13.5-17.5); IMMATURE GRAN ABSOLUTE AUTO 0.01 K/mm3 (0.00-0.10); IMMATURE GRAN PERCENT AUTO 0 % (0-1); LYMPHOCYTES ABSOLUTE AUTO 2.23 K/mm3 (0.84-5.20); LYMPHOCYTES PERCENT AUTO 35 % (21-46); MONOCYTES ABSOLUTE AUTO 0.62 K/mm3 (0.16-1.47); MONOCYTES PERCENT AUTO 10 % (4-13); Mean Corpuscular HGB 34.5 pg (26.0-34.0); Mean Corpuscular HGB Conc 34.7 g/dL (31.5-36.5); Mean Corpuscular Volume 99 fL (80-100); Mean Platelet Volume 9.1 fL (9.1-12.4); NEUTROPHILS ABSOLUTE AUTO 3.16 K/mm3 (1.96-9.15); NEUTROPHILS PERCENT AUTO 50 % (41-73); Platelet Count 307 K/mm3 (150-400); RDW Coefficient Variation 12.1 % (11.7-14.2); Red Blood Cell Count 4.38 M/mm3 (4.30-5.90); White Blood Cell Count 6.33 K/mm3 (4.00-11.30)
[2023-02-25 19:41] LABS: Alanine Aminotransfer (ALT/SGP 27 U/L (12-78); Albumin, Blood 3.7 g/dL (3.4-5.0); Albumin/Globulin Ratio 1.1 (0.8-1.8); Alk Phos 89 U/L (50-136); Anion Gap 7 mmol/L (6-16); Aspartate Aminotrans (AST/SGOT 29 U/L (12-37); Bilirubin, Total 0.4 mg/dL (0.1-1.0); Blood Urea Nitrogen 42 mg/dL (8-24); Bun/Creatinine Ratio 19.8 (12.0-20.0); CHOL/HDL RATIO 7.4; CO2, Blood 25 mmol/L (21-32); Chloride, Blood 109 mmol/L (98-108); Cholesterol 223 mg/dL (50-200); Creatinine, Blood 2.12 mg/dL (0.60-1.20); Globulin, Blood 3.5 g/dL (2.2-4.0); Glomerular Filtration Rate 34 (60-); Glucose, Blood 120 mg/dL (70-99); HDL Cholesterol 30 mg/dL (>39); LDL/HDL RATIO Unable to Calculate; Low Density Lipoprotein Chol Unable to Calculate mg/dL (0-110); Potassium, Blood 4.5 mmol/L (3.5-5.5); Sodium, Blood 141 mmol/L (136-145); Total Protein, Blood 7.2 g/dL (6.4-8.2); Triglycerides 459 mg/dL (30-160); Very Low Density Lipoprot Chol Unable to Calculate mg/dL (6-32)
[2023-02-25 19:56] LABS: LDL Direct Measurement 128 mg/dL (0-130)
== END ==
LOC: LAB SHORT 16:22
PROVIDERS: Nurse Practitioner Family
DX: Z13.220 Encounter for screening for lipoid disorders (principal); I10 Essential (primary) hypertension; E55.9 Vitamin D deficiency, unspecified
CPT/HCPCS: 80053; 80061; 82306; 83721; 84443; 85025

== ENCOUNTER → 2023-10-15 | Outpatient (CLI) | payer OTHER ==
[2023-10-15 17:18] LABS: BASOPHILS ABSOLUTE AUTO 0.05 K/mm3 (0.00-0.23); BASOPHILS PERCENT AUTO 1 % (0-2); EOSINOPHILS ABSOLUTE AUTO 0.27 K/mm3 (0.00-0.68); EOSINOPHILS PERCENT AUTO 4 % (0-6); Hematocrit 44.9 % (37.0-53.0); Hemoglobin 15.6 g/dL (13.5-17.5); IMMATURE GRAN ABSOLUTE AUTO 0.02 K/mm3 (0.00-0.10); IMMATURE GRAN PERCENT AUTO 0 % (0-1); LYMPHOCYTES ABSOLUTE AUTO 2.28 K/mm3 (0.84-5.20); LYMPHOCYTES PERCENT AUTO 33 % (21-46); MONOCYTES ABSOLUTE AUTO 0.67 K/mm3 (0.16-1.47); MONOCYTES PERCENT AUTO 10 % (4-13); Mean Corpuscular HGB Conc 34.7 g/dL (31.5-36.5); Mean Corpuscular Volume 101 fL (80-100); NEUTROPHILS PERCENT AUTO 52 % (41-73); Platelet Count 286 K/mm3 (150-400); RDW Coefficient Variation 13.4 % (11.7-14.2); RDW Standard Deviation 50.1 fL (35.1-46.3); Red Blood Cell Count 4.46 M/mm3 (4.30-5.90); White Blood Cell Count 6.89 K/mm3 (4.00-11.30)
[2023-10-15 19:50] LABS: Albumin, Blood 3.8 g/dL (3.4-5.0); Bilirubin, Total 0.5 mg/dL (0.1-1.0); Bun/Creatinine Ratio 13.5 (12.0-20.0); Creatinine, Blood 1.71 mg/dL (0.60-1.20); Globulin, Blood 3.7 g/dL (2.2-4.0); Percent Saturation 24.8 % (20.0-50.0); Potassium, Blood 4.1 mmol/L (3.5-5.5); Thyroid Stimulating Hormone 1.66 uIU/mL (0.360-4.800); Total Protein, Blood 7.5 g/dL (6.4-8.2)
== END ==
LOC: LAB SHORT 15:54 → LAB 15:54
PROVIDERS: Family Medicine
DX: D64.9 Anemia, unspecified (principal); E55.9 Vitamin D deficiency, unspecified; I10 Essential (primary) hypertension; R00.0 Tachycardia, unspecified
CPT/HCPCS: 80053; 82306; 82607; 82728; 82746; 83540; 83550; 84443; 85025

== ENCOUNTER → 2025-05-24 | Outpatient (CLI) | payer OTHER ==
[2025-05-24 18:59] LABS: BASOPHILS ABSOLUTE AUTO 0.04 K/mm3 (0.00-0.23); BASOPHILS PERCENT AUTO 1 % (0-2); EOSINOPHILS ABSOLUTE AUTO 0.22 K/mm3 (0.00-0.68); EOSINOPHILS PERCENT AUTO 4 % (0-6); Hematocrit 43.7 % (37.0-53.0); Hemoglobin 15.8 g/dL (13.5-17.5); IMMATURE GRAN ABSOLUTE AUTO 0.03 K/mm3 (0.00-0.10); IMMATURE GRAN PERCENT AUTO 1 % (0-1); LYMPHOCYTES ABSOLUTE AUTO 2.02 K/mm3 (0.84-5.20); LYMPHOCYTES PERCENT AUTO 32 % (21-46); MONOCYTES ABSOLUTE AUTO 0.46 K/mm3 (0.16-1.47); MONOCYTES PERCENT AUTO 7 % (4-13); Mean Corpuscular HGB Conc 36.2 g/dL (31.5-36.5); Mean Corpuscular Volume 97 fL (80-100); NEUTROPHILS ABSOLUTE AUTO 3.53 K/mm3 (1.96-9.15); NEUTROPHILS PERCENT AUTO 56 % (41-73); NRBC ABSOLUTE 0.00 K/mm3 (0.00-0.02); NRBC Auto 0.0 /100 WBC (0.0-0.2); Platelet Count 228 K/mm3 (150-400); RDW Coefficient Variation 12.7 % (11.7-14.2); RDW Standard Deviation 44.7 fL (35.1-46.3)
[2025-05-24 19:35] LABS: Alanine Aminotransfer (ALT/SGP 27 U/L (12-78); Albumin, Blood 3.7 g/dL (3.4-5.0); Albumin/Globulin Ratio 1.1 (0.8-1.8); Anion Gap 5 mmol/L (3-11); Aspartate Aminotrans (AST/SGOT 26 U/L (12-37); Bilirubin, Total 0.9 mg/dL (0.1-1.0); Blood Urea Nitrogen 12 mg/dL (8-24); CHOL/HDL RATIO 4.7; CO2, Blood 31 mmol/L (21-32); Calcium, Blood 9.0 mg/dL (8.5-10.1); Chloride, Blood 104 mmol/L (98-108); Cholesterol 178 mg/dL (50-200); Creatinine, Blood 1.19 mg/dL (0.60-1.20); Globulin, Blood 3.5 g/dL (2.2-4.0); Glucose, Blood 127 mg/dL (70-99); HDL Cholesterol 38 mg/dL (>39); LDL/HDL RATIO Unable to Calculate; Low Density Lipoprotein Chol Unable to Calculate mg/dL (0-110); Potassium, Blood 3.2 mmol/L (3.5-5.5); Sodium, Blood 137 mmol/L (136-145); Total Protein, Blood 7.2 g/dL (6.4-8.2); Triglycerides 403 mg/dL (30-160); Very Low Density Lipoprot Chol Unable to Calculate mg/dL (6-32)
[2025-05-24 19:50] LABS: LDL Direct Measurement 84 mg/dL (0-130)
== END ==
LOC: LAB SHORT 17:19 → LAB 17:19
PROVIDERS: Nurse Practitioner Family
DX: I10 Essential (primary) hypertension (principal); E55.9 Vitamin D deficiency, unspecified; E78.2 Mixed hyperlipidemia
CPT/HCPCS: 80053; 80061; 82306; 83721; 85025

== ENCOUNTER → 2025-09-14 | Outpatient (CLI) | payer MEDICARE, OTHER ==
[2025-09-14 17:54] LABS: BASOPHILS ABSOLUTE AUTO 0.07 K/mm3 (0.00-0.23); BASOPHILS PERCENT AUTO 1 % (0-2); EOSINOPHILS ABSOLUTE AUTO 0.39 K/mm3 (0.00-0.68); EOSINOPHILS PERCENT AUTO 5 % (0-6); Hematocrit 44.9 % (37.0-53.0); Hemoglobin 15.7 g/dL (13.5-17.5); IMMATURE GRAN ABSOLUTE AUTO 0.02 K/mm3 (0.00-0.10); IMMATURE GRAN PERCENT AUTO 0 % (0-1); LYMPHOCYTES ABSOLUTE AUTO 2.08 K/mm3 (0.84-5.20); LYMPHOCYTES PERCENT AUTO 29 % (21-46); MONOCYTES ABSOLUTE AUTO 0.55 K/mm3 (0.16-1.47); MONOCYTES PERCENT AUTO 8 % (4-13); Mean Corpuscular HGB Conc 35.0 g/dL (31.5-36.5); Mean Corpuscular Volume 100 fL (80-100); NEUTROPHILS ABSOLUTE AUTO 4.20 K/mm3 (1.96-9.15); NEUTROPHILS PERCENT AUTO 57 % (41-73); NRBC ABSOLUTE 0.00 K/mm3 (0.00-0.02); NRBC Auto 0.0 /100 WBC (0.0-0.2); Platelet Count 254 K/mm3 (150-400); RDW Coefficient Variation 12.7 % (11.7-14.2); RDW Standard Deviation 47.2 fL (35.1-46.3)
[2025-09-14 20:17] LABS: Alanine Aminotransfer (ALT/SGP 73.0 U/L (12-78); Albumin, Blood 3.7 g/dL (3.4-5.0); Albumin/Globulin Ratio 1.1 (0.8-1.8); Anion Gap 9.0 mmol/L (3-11); Aspartate Aminotrans (AST/SGOT 82.0 U/L (12-37); Bilirubin, Total 0.8 mg/dL (0.1-1.0); Blood Urea Nitrogen 28.0 mg/dL (8-24); CO2, Blood 29.0 mmol/L (21-32); Calcium, Blood 9.1 mg/dL (8.5-10.1); Chloride, Blood 102.0 mmol/L (98-108); Creatinine, Blood 1.59 mg/dL (0.60-1.20); Ferritin, Serum 176.0 ng/mL (26-388); Globulin, Blood 3.3 g/dL (2.2-4.0); Glucose, Blood 171.0 mg/dL (70-99); Magnesium, Blood 2.0 mg/dL (1.6-2.4); Potassium, Blood 4.1 mmol/L (3.5-5.5); Sodium, Blood 136.0 mmol/L (136-145); Total Iron Binding Capacity 356.0 ug/dL (250-450); Total Protein, Blood 7.0 g/dL (6.4-8.2)
[2025-09-17 20:02] LABS: VITAMIN B1,WHOLE BLOOD 203 nmol/L (70-180)
== END ==
LOC: LAB SHORT 12:44 → LAB 12:44
PROVIDERS: Family Medicine
DX: E87.6 Hypokalemia (principal); D64.9 Anemia, unspecified; E53.8 Deficiency of other specified B group vitamins; G62.1 Alcoholic polyneuropathy; I10 Essential (primary) hypertension
CPT/HCPCS: 80053; 82607; 82728; 82746; 83540; 83550; 83735; 84425; 85025